=== PATIENT | female | born 2000 | race Two or more races ===

== ENCOUNTER 2025-03-29 16:07 | Inpatient (IN) | payer MEDICAID, OTHER ==
[~2025-03-29] VITALS: Ht 165.1 cm; Wt 51.2 kg
--- NOTE | 2025-03-29 16:24 | ED.PDOC ---
HPI Comments Past Medical history: Denies Any Past Surgical history: Denies Any Medications: Denies any Social History: Denies smoking, ETOH, and drug use. Allergies: NKDA HPI: Poor Historian. 25-year-old female presents to emergency department for three day history of left-sided chest pain radiating to her left shoulder. Pain is constant but wor se with movement of the upper body and bending. Denies any other associated symptoms. REVIEW OF SYSTEMS: CONSTITUTIONAL: Denies acute: fever, diaphoresis, chills, generalized weakness. HEAD: Denies acute: headache, photophobia Eyes: Denies acute: Double vision, vision loss, eye pain, eye discharge. EARS: Denies acute: tinnitus, hearing loss, ear discharge, ear pain, THROAT: Denies acute: sore throat, swelling, difficulty swallowing , pain with swallowing, change in voice. NECK: Denies acute: neck pain, neck swelling, stiff neck. HEART: Denies acute : palpitations, LUNGS: Denies acute: SOB, wheezing, cough, hemoptysis ABDOMEN: Denies acute: abdominal pain, Nausea, Vomiting, diarrhea, melena , hematemesis, hematochezia SKIN: Denies acute: rash, redness, lesions, itchiness. EXTREMITIES: Denies acute: calf pain, numbness, tingling, weakness, denies pain in extremity. Denies acute: Low back pain. Neuro: Denies acute: focal neurological deficit, motor or sensory focal neurological de ficit, tremors, seizure like activity, confusion, dizziness, change in mental status, loss of bowel or bladder function, cauda equina like symptoms. : Denies acute: dysuria, hematuria, flank pain, increase in urinary frequency. PSYCH: Denies acute: hallucination, suicidal ideation, homicidal ideation. FEMALE: Denies acute: abnormal vaginal bleeding, foul odor, unusual discharge. PHYSICAL EXAM: General: ----no----acute distress, awake and alert. Head: normocephalic, atraumatic. Neck: supple, trachea is midline, no swelling. Throat: Normal phonation. Eyes:, no erythema, no purulent discharge, no proptosis, no icterus. Heart: regular rate, regular rhythm, no significant murmur appreciated. Lungs: no apparent respiratory distress, Able to speak in full sentences. No wheezing, no rhonchi, no crackles. No stridors Clear to auscultation bilaterally. Abdomen: non tender to palpation, non distended, soft, no guarding, no rebound, + bowel sounds. Neuro: Awake, Alert, oriented to name, self, situation, follows commands GCS=15. Speech is normal. Skin: no petechia, no purpura, no cyanosis, non-pale, not jaundice. Lower extremities: --no - Pitting edema no deformity, no focal swelling, no calf TTP. Makes eye contact. moves all four extremities. Face: no apparent facial droop. Ambulating in the ED independently. ED COURSE: DISCLAIMER: This medical document was created using an electronic medical record system with voice recognition software and computerized dictation system. Although this document has been carefully reviewed, there might still be some phonetic and typographical errors. Occasional wrong-word or "sound-alike" substitutions may have occurred due to the inherent limitations of voice recognition software. These areas are purely typographical due to imperfections of the software programs and do not reflect any compromise in the patient's medical care. Please read the chart carefully and recognize, using context, where these substitutions have occurred. Chief Complaint: Chest Pain Time Seen by MD: 16:20 Reviewed Notes: Nurses Notes, Medications, Allergies Allergies: Coded Allergies: NO KNOWN ALLERGIES (Unverified , 03/29/25) Information Source: Patient Mode of Arrival: Ambulatory Past Medical History PAST MEDICAL HISTORY: Denies Surgical History: Denies all surgeries RADIOPHARMACIST History: No Pertinent RADIOPHARMACIST History Family History Family History: Reviewed,noncontributory to illness, Unknown Social History Smoker: Non-Smoker Alcohol: Denies ETOH Use Drugs: Denies Drug Use Lives In: Home EKG EKG : Pulse Rate (adult): 53 [place]: Normal Cardiac Rhythm: NSR Block: None Hypertrophy: None ST: Normal Was a procedure done? Was a procedure done?: Yes Sedation Sedation?: No Informed consent obtained: Yes Chest Tube Indication: Pneumothorax Procedure: Sterile preparation Anesthetic: Lidocaine Site: L 3rd intercostal space Drainage: Air Informed consent obtained: Yes Risks/benefits/alt described: Yes Notes URESIL thoracic vent 2% lidocaine with epi was used for local anesthesia a total of 4 cc. Eleven blade was used to make initial incision. Vent was connected to wall low intermittent suction. Postprocedure x-ray were obtained which showed imp rovement. Patient tolerated procedure well. Bleeding minimal. Complications none apparent. CP Differential Dx Differential Diagnosis: N/A Differential Diagnosis: Pneumothorax, Other (Ddx include but not limitied to gastritis, musculoskeletal pain, radiculopathy, atypical chest pain, dissection, aneurysm, ACS, unstable angina, hiatal hernia, GERD, anxiety, costochondritis, PE, pneumothroax, neoplasm, cardiac ischemia, drug abuse, anemia.) X-Ray, Labs, Meds, VS Vital Signs Date Time Temp Pulse Resp B/P (MAP) Pulse Ox O2 Delivery O2 Flow Rate FiO2 03/29/25 17:16 68 19 98 Room Air* 0 21 03/29/25 17:14 54 13 100/53 (69) 100 03/29/25 16:24 53 03/29/25 16:14 53 03/29/25 16:09 98.2 68 16 102/57 98 98.2 Lab Test 03/29/25 18:31 03/29/25 17:23 03/29/25 16:30 Range/Units Urine Color Light-yellow Yellow Urine Clarity Clear Clear Urine pH 6.0 5.0-9.0 Urine Specific [place] 1.006 1.001-1.035 Urine Protein Negative Negative Urine Ketones Trace Negative Urine Blood Negative Negative /uL Urine Nitrite Negative Negative Urine Bilirubin Negative Negative Urine Urobilinogen Normal Negative mg/dL Urine Leukocyte Esterase Negative Negative /uL Urine RBC None seen 0 - 4 /hpf Urine Microscopic WBC 2 0-5 /HPF Urine Squamous Epithelial Cells Few <5 /hpf Urine Bacteria Few H None Seen /hpf Urine Glucose Normal Normal mg/dL Urine Test Negative Negative Troponin I High Sensitivity < 3 L < 3 L </=34 ng/L White Blood Count 7.2 4.4-10.8 10^3/uL Red Blood Count 4.36 4.0-5.20 10^6/uL Hemoglobin 14.1 12.2-16.2 g/dL Hematocrit 40.5 36.0-46.0 % Mean Corpuscular Volume 92.7 80.0-100.0 fL Mean Corpuscular Hemoglobin 32.2 H 28.0-32.0 pg Mean Corpuscular Hemoglobin Concent 34.7 32.0-36.0 g/dL Red Cell Distribution Width 13.0 11.8-14.3 % Platelet Count 201 140-450 10^3/uL Mean Platelet Volume 8.2 6.9-10.8 fL Neutrophils (%) (Auto) 68.3 37.0-80.0 % Lymphocytes (%) (Auto) 23.9 10.0-50.0 % Monocytes (%) (Auto) 6.6 0.0-12.0 % Eosinophils (%) (Auto) 0.6 0.0-7.0 % Basophils (%) (Auto) 0.6 0.0-2.0 % Neutrophils # (Auto) 4.9 1.6-8.6 10 ^3/uL Lymphocytes # (Auto) 1.7 0.4-5.4 10 ^3/uL Monocytes # (Auto) 0.5 0-1.3 10 ^3/uL Eosinophils # (Auto) 0 0-0.8 10 ^3/uL Basophils # (Auto) 0 0-0.2 10 ^3/uL Nucleated Red Blood Cells 0.0 % D-Dimer, Quantitative < 0.19 0.0-0.49 mg/L FEU Sodium Level 142 136-145 mmol/L Potassium Level 3.6 3.5-5.1 mmol/L Chloride Level 104 98-107 mmol/L Carbon Dioxide Level 27 20-31 mmol/L Anion Gap 11 5-15 Blood Urea Nitrogen 8 L 9-23 mg/dL Creatinine 0.74 0.550-1.02 mg/dL Glomerular Filtration Rate Calc 117 >90 mL/min BUN/Creatinine Ratio 10.8 10.0-20.0 Serum Glucose 83 74-106 mg/dL Calcium Level 9.7 8.7-10.4 mg/dL Total Bilirubin 2.2 H 0.2-1.0 mg/dL Aspartate Amino Transferase (AST) 17 13-40 U/L Alanine Aminotransferase (ALT) 17 7-40 U/L Alkaline Phosphatase 60 46-116 U/L Total Protein 7.5 5.7-8.2 g/dL Albumin 5.2 H 3.2-4.8 g/dL [facility] [address] [facility] [address] Ph: [phone] DIAGNOSTIC IMAGING Diagnostic Imaging Report : [id number] Signed PATIENT: WESLY LOPEZ ACCT: [id number] UNIT: [id number] : 2000 LOC: ER ROOM / BED: / AGE / SEX: 25 / F ADM STATUS: REG ER SERVICE 1615 ORDERING PHYSICIAN: JANET RUSH DO PROCEDURE(s): CXRP - CHEST PORTABLE REASON: CP ORDER NUMBER(s): [id number], ACCESSION NUMBER(s): [id number] EXAM: XY CHEST PORTABLE HISTORY: CP COMPARISON: None TECHNIQUE: PA upright view of the chest was performed. FINDINGS: There is a left pneumothorax measuring 2.9 cm in the apex. No consolidative infiltrates or pulmonary edema. There is mild central peribronchial thickening. The heart is not enlarged. There is mild lower thoracic levoscoliosis. No fractures are identified about the bony thorax. IMPRESSION: 1. Left apical pneumothorax measures 2.9 cm. 2. Reactive airways disease. Critical findings Critical Result: Left pneumothorax Findings called to Dr. Rush at 03/29/2025 06:42 PM CDT, and acknowledged receipt and understanding of the findings. ATED BY: CLINT KIM MD DICTATED DATE/TIME: 03/29/251646 SIGNED BY: CLINT KIM MD SIGNED DATE/TIME: 03/29/251646 CC: [place] [id number] Ph: [phone] DIAGNOSTIC IMAGING Diagnostic Imaging Report : [id number] Signed PATIENT: WESLY LOPEZ ACCT: [id number] UNIT: [id number] : 2000 LOC: OVERFLOW ROOM / BED: 1016-ER / A AGE / SEX: 25 / F ADM STATUS: ADM IN SERVICE 23 ORDERING PHYSICIAN: JANET RUSH DO PROCEDURE(s): CXR1 - CHEST XRAY 1 VIEW REASON: cheat tube placement ORDER NUMBER(s): [id number], ACCESSION NUMBER(s): [id number] EXAM: XY CHEST XRAY 1 VIEW HISTORY: cheat tube placement TECHNIQUE: 1 view of the chest COMPARISON: XY CHEST PORTABLE on DOS: 03/29/25 FINDINGS/IMPRESSION: LUNGS: Left upper hemithoracic pleural catheter placement. No interval change. Trace residual likely apical pneumothorax. Overall no significant interval change MEDIASTINUM: Unremarkable BONES: No acute osseous abnormality OTHER: None ATED BY: MARCIAL ALONSO MD DICTATED DATE/TIME: 03/29/252115 SIGNED BY: MARCIAL ALONSO MD SIGNED DATE/TIME: 03/29/252115 CC: [place] [id number] Ph: [phone] DIAGNOSTIC IMAGING Diagnostic Imaging Report : [id number] Signed PATIENT: WESLY LOPEZ ACCT: [id number] UNIT: [id number] : 2000 LOC: OVERFLOW ROOM / BED: [address] [place] [address] AGE / SEX: 25 / F ADM STATUS: ADM IN SERVICE 10 ORDERING PHYSICIAN: JANET RUSH DO PROCEDURE(s): CXR2 - CHEST TWO VIEWS ROUTINE REASON: post chest tube. ORDER NUMBER(s): [id number], ACCESSION NUMBER(s): [id number] EXAM: XY CHEST TWO VIEWS ROUTINE CLINICAL HISTORY: post chest tube. TECHNIQUE: Frontal and lateral views of the chest WID: COMPARISON: XY CHEST PORTABLE on DOS: 03/29/25, XY CHEST XRAY 1 VIEW on DOS: 03/29/25, XY CHEST PORTABLE on DOS: 03/29/25 FINDINGS: Lines and tubes: There is an anterior approach left pleural drain projecting over the left upper lung. Chest: The heart size and pulmonary vasculature is within normal limits. Small left apical pneumothorax. No new pneumothorax or pleural effusion. The osseous structures are grossly intact. IMPRESSION: 1. Small left apical pneumothorax with a left upper chest tube in place. ATED BY: VEGA JC MD DICTATED DATE/TIME: 03/29/252309 SIGNED BY: VEGA JC MD SIGNED DATE/TIME: 08/29/25 2310 CC: Time of 1ST Reevaluation: 16:50 Reevaluation 1ST: Unchanged Patient Education/Counseling: Diagnosis, Treatment, Prognosis Family Education/Counseling: No Family Present Comments MDM: patient presented with the above HPI.--chest pain----workup was initiated. patient was found with the above mentioned diagnosis. the following medications were ordered: please refer to order lists of meds and tests obtained by myself Dr. Rush. Patient ED course and VS have been stabilized. Patient has been reassessed in the ED and remained in a stable condition. Pertinent incidental findings were discussed with the patient and/or family. Patient/family voices understanding and is agreeable with plan. Patient has been observed in the ED adequate length of time to insure improvement/stability. Escalation of care considered: Consideration of escalation to observation or admission Chest tube was placed successfully from 1st attempt. Connected to low intermittent suction. Post procedure chest x-ray shows improvement of the pneumothorax. Patient was ADMITTED to the medicine team for further evaluation and treatment of their presentation. All the reports of any imaging studies that were ordered by myself were reviewed by myself. SEPSIS Sepsis Screen Date sepsis recognized/suspect: Mar 29, 2025 Time Sepsis recognized/suspect: 1609 Recent Procedure: No On Antibiotic Therapy: No Respiratory Rate >20: No Heart Rate >90: No Temp<36 C (96.8 F) or >38.3 C: No SBP <90 or MAP <65 mmHG: No New Acute Mental Status Change: No Is the patient on CPAP, BIPAP,: No Physician Orders Electrocardigram (03/29/25 16:10) Chest Portable (03/29/25 16:15) Chest Portable (03/30/25 01:19) Chest Portable (03/30/25 07:19) Chest Portable (03/30/25 13:19) Regular Diet (03/30/25 Breakfast) Non Rebreather (03/29/25 19:39) Vital Signs Date Time Temp Pulse Resp B/P (MAP) Pulse Ox O2 Delivery O2 Flow Rate FiO2 03/29/25 17:16 68 19 98 Room Air* 0 21 03/29/25 17:14 54 13 100/53 (69) 100 03/29/25 16:24 53 03/29/25 16:14 53 03/29/25 16:09 98.2 68 16 102/57 98 98.2 Laboratory Tests Test 03/29/25 16:30 White Blood Count 7.2 10^3/uL (4.4-10.8) Departure 1 Departure Time of Disposition: 16:44 Impression: Primary Impression: Spontaneous pneumothorax Additional Impression: Status post chest tube placement Disposition: ADMITTED INPATIENT Admit to: Tele Condition: Guarded Discharged With: Self Critical Care Note Critical Care Time?: Yes (45 min-critical care time only) Heart Score Heart Score: Heart Score Response (Comments) Value History Slightly Suspicious 0 EKG Normal 0 Age <45 0 Risk Factors No known risk factors 0 Troponin Normal limit 0 Total 0 I personally scribed for JANET RUSH DO ([email or web address]) on 03/29/25 at 16:24. Electronically submitted by Osvaldo Diaz ([email or web address]). I personally scribed for JANET RUSH DO ([email or web address]) on 03/29/25 at 16:53. Electronically submitted by Osvaldo Diaz ([email or web address]). JANET RUSH DO Mar 29, 2025 16:24
--- NOTE | 2025-03-29 16:50 | DVH ---
EXAM: XY CHEST PORTABLE HISTORY: CP COMPARISON: None TECHNIQUE: PA upright view of the chest was performed. FINDINGS: There is a left pneumothorax measuring 2.9 cm in the apex. No consolidative infiltrates or pulmonary edema. There is mild central peribronchial thickening. The heart is not enlarged. There is mild lower thoracic levoscoliosis. No fractures are identified about the bony thorax. IMPRESSION: 1. Left apical pneumothorax measures 2.9 cm. 2. Reactive airways disease. Critical findings Critical Result: Left pneumothorax Findings called to Dr. Calderon at 03/29/2025 06:42 PM CDT, and acknowledged receipt and understanding o f the findings.
[2025-03-29 16:51] LABS: Hematocrit 40.5 % (36.0-46.0); Hemoglobin 14.1 g/dL (12.2-16.2); Mean Corpuscular Hemoglobin 32.2 pg (28.0-32.0); Mean Corpuscular Volume 92.7 fL (80.0-100.0); Nucleated Red Blood Cells % 0.0 %
[2025-03-29 17:13] LABS: Alanine Aminotransferase 17 U/L (7-40); Alkaline Phosphatase 60 U/L (46-116); Anion Gap 11 (5-15); BUN/Creatinine Ratio 10.8 (10.0-20.0); Calcium 9.7 mg/dL (8.7-10.4); Carbon Dioxide 27 mmol/L (20-31); Chloride 104 mmol/L (98-107); Glucose 83 mg/dL (74-106); Potassium 3.6 mmol/L (3.5-5.1); Sodium 142 mmol/L (136-145); Total Protein 7.5 g/dL (5.7-8.2)
[2025-03-29 17:16] VITALS: PULSE 68; RESP 19; O2SAT 98
[2025-03-29 17:17] LABS: Albumin 5.2 g/dL (3.2-4.8); Bilirubin, Total 2.2 mg/dL (0.2-1.0); Blood Urea Nitrogen 8 mg/dL (9-23)
--- NOTE | 2025-03-29 19:19 | DVHHP2 ---
Admitting Diagnosis: Chest pain History of Present Illness 25-year-old female presents to emergency department for three day history of left-sided chest pain radiating to her left shoulder. Pain is constant but worse with movement of the upper body and bending. Denies any other associated symptoms. REVIEW OF SYSTEMS: CONSTITUTIONAL: Denies acute: fever, diaphoresis, chills, generalized weakness. HEAD: Denies acute: headache, photophobia Eyes: Denies acute: Double vision, vision loss, eye pain, eye discharge. EARS: Denies acute: tinnitus, hearing loss, ear discharge, ear pain, THROAT: Denies acute: sore throat, swelling, difficulty swallowing , pain with swallowing, change in voice. NECK: Denies acute: neck pain, neck swelling, stiff neck. HEART: Denies acute : palpitations, LUNGS: Denies acute: SOB, wheezing, cough, hemoptysis ABDOMEN: Denies acute: abdominal pain, Nausea, Vomiting, diarrhea, melena , hematemesis, hematochezia SKIN: Denies acute: rash, redness, lesions, itchiness. EXTREMITIES: Denies acute: calf pain, numbness, tingling, weakness, denies pain in extremity. Denies acute: Low back pain. Neuro: Denies acute: focal neurological deficit, motor or sensory focal neurological deficit, tremors, seizure like activity, confusion, dizziness, change in mental status, loss of bowel or bladder function, cauda equina like symptoms. : Denies acute: dysuria, hematuria, flank pain, increase in urinary frequency. PSYCH: Denies acute: hallucination, suicidal ideation, homicidal ideation. FEMALE: Denies acute: abnormal vaginal bleeding, foul odor, unusual discharge. PAST MEDICAL HISTORY: Denies Surgical History: Denies all surgeries SEAM RUBBING MACHINE OPERATOR History: No Pertinent SEAM RUBBING MACHINE OPERATOR History Family History Family History: Reviewed,noncontributory to illness, Unknown Social History Smoker: Non-Smoker Alcohol: Denies ETOH Use Drugs: Denies Drug Use Lives In: Home Allergies: Coded Allergies: NO KNOWN ALLERGIES (Unverified , 03/29/25) Vital Signs Vital Signs Date Time Temp Pulse Resp B/P (MAP) Pulse Ox O2 Delivery O2 Flow Rate FiO2 03/29/25 17:16 68 19 98 Room Air* 0 21 03/29/25 17:14 100/53 (69) 03/29/25 16:09 98.2 98.2 Physical Exam Generally-35 years old woman, well nourished regular. Mild distress HEENT-atraumatic N/C Heart-regular rate and rhythm Lungs clear to auscultate Abdomen soft nontender nondistended Musculoskeletal-no edema cyanosis Neuro-AO x3, no focal deficits SEPSIS Sepsis Screen Date sepsis recognized/suspect: Mar 29, 2025 Time Sepsis recognized/suspect: 1609 Recent Procedure: No On Antibiotic Therapy: No Respiratory Rate >20: No Heart Rate >90: No Temp<36 C (96.8 F) or >38.3 C: No SBP <90 or MAP <65 mmHG: No New Acute Mental Status Change: No Is the patient on CPAP, BIPAP,: No Physician Orders Electrocardigram (03/29/25 16:10) Troponin-I Hs (03/29/25 19:10) Chest Portable (03/29/25 16:15) Urinalysis (03/29/25 18:31) Vital Signs Date Time Temp Pulse Resp B/P (MAP) Pulse Ox O2 Delivery O2 Flow Rate FiO2 03/29/25 17:16 68 19 98 Room Air* 0 21 03/29/25 17:14 54 13 100/53 (69) 100 03/29/25 16:24 53 03/29/25 16:14 53 03/29/25 16:09 98.2 68 16 102/57 98 98.2 Laboratory Tests Test 03/29/25 16:30 White Blood Count 7.2 10^3/uL (4.4-10.8) Results Labs Test 03/29/25 18:31 03/29/25 17:23 03/29/25 16:30 Range/Units Troponin I High Sensitivity < 3 L </=34 ng/L White Blood Count 7.2 4.4-10.8 10^3/uL Red Blood Count 4.36 4.0-5.20 10^6/uL Hemoglobin 14.1 12.2-16.2 g/dL Hematocrit 40.5 36.0-46.0 % Mean Corpuscular Volume 92.7 80.0-100.0 fL Mean Corpuscular Hemoglobin 32.2 H 28.0-32.0 pg Mean Corpuscular Hemoglobin Concent 34.7 32.0-36.0 g/dL Red Cell Distribution Width 13.0 11.8-14.3 % Platelet Count 201 140-450 10^3/uL Mean Platelet Volume 8.2 6.9-10.8 fL Neutrophils (%) (Auto) 68.3 37.0-80.0 % Lymphocytes (%) (Auto) 23.9 10.0-50.0 % Monocytes (%) (Auto) 6.6 0.0-12.0 % Eosinophils (%) (Auto) 0.6 0.0-7.0 % Basophils (%) (Auto) 0.6 0.0-2.0 % Neutrophils # (Auto) 4.9 1.6-8.6 10 ^3/uL Lymphocytes # (Auto) 1.7 0.4-5.4 10 ^3/uL Monocytes # (Auto) 0.5 0-1.3 10 ^3/uL Eosinophils # (Auto) 0 0-0.8 10 ^3/uL Basophils # (Auto) 0 0-0.2 10 ^3/uL Nucleated Red Blood Cells 0.0 % D-Dimer, Quantitative < 0.19 0.0-0.49 mg/L FEU Sodium Level 142 136-145 mmol/L Potassium Level 3.6 3.5-5.1 mmol/L Chloride Level 104 98-107 mmol/L Carbon Dioxide Level 27 20-31 mmol/L Anion Gap 11 5-15 Blood Urea Nitrogen 8 L 9-23 mg/dL Creatinine 0.74 0.550-1.02 mg/dL Glomerular Filtration Rate Calc 117 >90 mL/min BUN/Creatinine Ratio 10.8 10.0-20.0 Serum Glucose 83 74-106 mg/dL Calcium Level 9.7 8.7-10.4 mg/dL Total Bilirubin 2.2 H 0.2-1.0 mg/dL Aspartate Amino Transferase (AST) 17 13-40 U/L Alanine Aminotransferase (ALT) 17 7-40 U/L Alkaline Phosphatase 60 46-116 U/L Total Protein 7.5 5.7-8.2 g/dL Albumin 5.2 H 3.2-4.8 g/dL Primary Diagnosis Left apical pneumothorax spontaneous Plan Pt is prepped in ED for chest tube For patient's father patient insert family smokes regularly at home. Patient vapes and patient's grandmother head lung disease Patient also has frequent upper respiratory infection on steroids and antibiotics last one about a month ago Pulmonology consult Non-rebreather 15 L to expand the lungs Regular diet Full code Lovenox for DVT prophylaxis DVT prophylaxis needed Plan discussed with: Patient Problems List: (1) Chest pain Status: Acute (2) Spontaneous pneumothorax Status: Acute Date of Service: Mar 29, 2025 Billing Provider: TWILA WEAVER MD Common Visit Codes: [id number] INP/OBS CARE (MOD) TWILA WEAVER MD Mar 29, 2025 19:19
[2025-03-29] MEDS: SODIUM CHLORIDE 0.9% 1,000 ML IV ONE (19:30)
[2025-03-29 19:50] VITALS: PULSE 57; RESP 22; O2SAT 100
[2025-03-29 19:53] LABS: Urine Protein, UAD Negative (Negative)
--- NOTE | 2025-03-29 21:19 | DVH ---
EXAM: XY CHEST XRAY 1 VIEW HISTORY: cheat tube placement TECHNIQUE: 1 view of the chest COMPARISON: XY CHEST PORTABLE on DOS: 03/29/25 FINDINGS/IMPRESSION: LUNGS: Left upper hemithoracic pleural catheter placement. No interval change. Trace residual likely apical pneumothorax. Overall no significant interval change MEDIASTINUM: Unremarkable BONES: No acute osseous abnormality OTHER: None
[2025-03-29] MEDS: HYDROmorphone HCL 2 MG/ML VL/or syr IV PRN (21:27)
[2025-03-29] MEDS: LIDOCAINE W/ EPINEPHRINE 2% INJ 20ML VIAL ONE (21:46)
[2025-03-29] MEDS: ceFAZolin 1GM/50ML 50 ML IV SCH (21:57)
[2025-03-29] MEDS: SODIUM CHLOR 0.9% PF (SALINE LOCK) 10ML VIAL/SYR IV SCH (22:00)
[2025-03-29] MEDS: ONDANSETRON HCL 4 MG/2 ML VIAL IV PRN (22:30)
--- NOTE | 2025-03-29 23:12 | DVH ---
EXAM: XY CHEST TWO VIEWS ROUTINE CLINICAL HISTORY: post chest tube. TECHNIQUE: Frontal and lateral views of the chest WID: COMPARISON: XY CHEST PORTABLE on DOS: 03/29/25, XY CHEST XRAY 1 VIEW on DOS: 03/29/25, XY CHEST PORTABL E on DOS: 03/29/25 FINDINGS: Lines and tubes: There is an anterior approach left pleural drain projecting over the left upper lung . Chest: The heart size and pulmonary vasculature is within normal limits. Small left apical pneumothorax. No new pneumothorax or pleural effusion. The osseous structures are grossly intact. IMPRESSION: 1. Small left apical pneumothorax with a left upper chest tube in place.
[2025-03-30 04:57] LABS: Alanine Aminotransferase 14 U/L (7-40); Alkaline Phosphatase 60 U/L (46-116); Anion Gap 12 (5-15); BUN/Creatinine Ratio 9.5 (10.0-20.0); Calcium 9.5 mg/dL (8.7-10.4); Carbon Dioxide 23 mmol/L (20-31); Chloride 106 mmol/L (98-107); Glucose 84 mg/dL (74-106); Potassium 4.5 mmol/L (3.5-5.1); Sodium 141 mmol/L (136-145); Total Protein 7.5 g/dL (5.7-8.2)
[2025-03-30 04:58] LABS: Hematocrit 41.6 % (36.0-46.0); Hemoglobin 14.2 g/dL (12.2-16.2); Mean Corpuscular Hemoglobin 32.2 pg (28.0-32.0); Mean Corpuscular Volume 94.1 fL (80.0-100.0); Nucleated Red Blood Cells % 0.1 %
[2025-03-30 05:01] LABS: Albumin 4.9 g/dL (3.2-4.8); Bilirubin, Total 2.3 mg/dL (0.2-1.0); Blood Urea Nitrogen 7 mg/dL (9-23)
--- NOTE | 2025-03-30 08:04 | DVH ---
XY CHEST PORTABLE, HISTORY: left spontaneous pneumothorax COMPARISON: XY CHEST TWO VIEWS ROUTINE on DOS: 03/29/25, XY CHEST PORTABLE on DOS: 03/29/25, XY CHEST X RAY 1 VIEW on DOS: 03/29/25 XY CHEST TWO VIEWS ROUTINE on DOS: 03/29/25, XY CHEST PORTABLE on DOS: 03/29/25, XY CHEST XRAY 1 VIEW o n DOS: 03/29/25 TECHNICAL DATA: 1 view of the chest was obtained. FINDINGS: Lines and tubes: Stable left apical chest tube. Cardiomediastinal silhouette: normal Pulmonary vasculature: normal Lung expansion: normal Lung airspace: normal Lung interstitium: normal Pleura: normal Pneumothorax: no Bones: Unremarkable Other: no IMPRESSION: No pneumothorax seen.
[2025-03-30] MEDS: HYDROcodone-ACET 5/325MG TAB PO PRN (10:57)
[2025-03-30] MEDS: ENOXAPARIN SOD 40 MG/0.4 ML SYRINGE SC SCH (11:00)
[2025-03-30 11:02] VITALS: RESP 18
--- NOTE | 2025-03-30 13:53 | DVH ---
XY CHEST PORTABLE, HISTORY: left spontaneous pneumothorax COMPARISON: XY CHEST PORTABLE on DOS: 03/30/25, XY CHEST TWO VIEWS ROUTINE on DOS: 03/29/25, XY CHEST P ORTABLE on DOS: 03/29/25 XY CHEST PORTABLE on DOS: 03/30/25, XY CHEST TWO VIEWS ROUTINE on DOS: 03/29/25, XY CHEST PORTABLE on D OS: 03/29/25 TECHNICAL DATA: 1 view of the chest was obtained. FINDINGS: Lines and tubes: Stable left apical chest tube. Cardiomediastinal silhouette: normal Pulmonary vasculature: normal Lung expansion: normal Lung airspace: normal Lung interstitium: normal Pleura: normal Pneumothorax: no Bones: Unremarkable Other: no IMPRESSION: No pneumothorax seen.
[2025-03-30 14:25] VITALS: BP 102/49; PULSE 52; RESP 18; TEMP 98.3; O2SAT 100
--- NOTE | 2025-03-30 17:43 | DVHPN2 ---
Subjective Patient is seen at bedside today,. Doing well, needs pain control. Reviewed: Care Plan Changes from previous H/P or p: No Changes General: Per HPI Objective Vitals Vital Signs Date Time Temp Pulse Resp B/P (MAP) Pulse Ox O2 Delivery O2 Flow Rate FiO2 03/30/25 14:25 98.3 52 18 102/49 (66) 100 98.3 03/30/25 11:02 Nasal Cannula* 2 28 Exam GEN: Healthy appearing, well-developed, NAD. HEENT: NC/AT; MMM. CV: RRR, no m/r/g. LUNGS: CTAB, no w/r/c. Chest tube anterior chest wall, lateral clavicular line on left side, good breath sounds in all adames. Chest tube was connected to the suction. ABD: Soft, NT/ND, NBS, no masses or organomegaly. EXT: skin Warm, well perfused. no rashes. No clubbing, cyanosis, or edema. NEURO: Ambulating with no limitations. No focal deficits. Medications Current Medications Medications Dose Ordered Sig/Antoni Route Start Time Stop Time Status Last Admin Dose Admin Sodium Chloride 10 ml Q8HR IV 03/29/25 22:00 03/30/25 14:00 10 ML Docusate Sodium 100 mg BIDPRN PRN PO 03/29/25 19:45 Acetaminophen 650 mg Q6HP PRN PO 03/29/25 19:45 Hydromorphone HCl 0.5 mg Q4HP PRN IV 03/29/25 19:45 Hold 03/30/25 03:25 0.5 MG Ondansetron HCl 4 mg Q4HP PRN IV 03/29/25 19:45 03/30/25 03:20 4 MG Enoxaparin Sodium 40 mg DAILY SC 03/30/25 10:00 03/30/25 11:00 40 MG Cefazolin Sodium 50 ml @ 100 mls/hr Q8H IV 03/29/25 19:45 03/30/25 12:03 100 MLS/HR Morphine Sulfate 1 mg Q4HP PRN IV 03/30/25 16:15 Acetaminophen/ Hydrocodone Bitart 1 tab Q4HP PRN PO 03/30/25 16:15 Laboratory Results Laboratory Tests 03/30/25 03:39 Chemistry Test 03/30/25 03:39 Albumin 4.9 g/dL (3.2-4.8) H Calcium Level 9.5 mg/dL (8.7-10.4) Total Protein 7.5 g/dL (5.7-8.2) LFT Test 03/30/25 03:39 Alanine Aminotransferase (ALT) 14 U/L (7-40) Alkaline Phosphatase 60 U/L (46-116) Aspartate Amino Transferase (AST) 15 U/L (13-40) Total Bilirubin 2.3 mg/dL (0.2-1.0) H Urinalysis Test 03/29/25 18:31 Urine Color Light-yellow (Yellow) Urine Clarity Clear (Clear) Urine pH 6.0 (5.0-9.0) Urine Specific [place] 1.006 (1.001-1.035) Urine Protein Negative (Negative) Urine Ketones Trace (Negative) Urine Blood Negative /uL (Negative) Urine Nitrite Negative (Negative) Urine Bilirubin Negative (Negative) Urine Urobilinogen Normal mg/dL (Negative) Urine Leukocyte Esterase Negative /uL (Negative) Urine RBC None seen /hpf (0 - 4) Urine Microscopic WBC 2 /HPF (0-5) Urine Squamous Epithelial Cells Few /hpf (<5) Urine Bacteria Few /hpf (None Seen) H Urine Glucose Normal mg/dL (Normal) Urine Test Negative (Negative) Labs and/or images reviewed: Labs reviewed by me, Image(s) reviewed by me Assessment/Plan Assessment/Plan 03/30: Patient is seen at bedside, doing well, anorexic BMI 16 ,. Patient was not seen by [facility] today as order was entered incorrectly. We will fix order for Dr. Regan. Otherwise continue chest tube. Pain control. Left pneumothorax Severe protein calorie malnutrition Anorexia Neutrophilia Hyperbilirubinemia Plan: PULM consult Pain control PRN and analgesia Antiemetic prn Diet resume Maintenance IV fluids Ancef Lovenox Med surge Full code Plan discussed with: Patient My Orders Orders - OSEAS ALEJO MD Procedure Category Date Status Time *Consult CONS 03/30/25 Transmitted / 14:43 Morphine Sulfate PHA 03/30/25 In Process Injection 16:15 Hydrocodone-Acet PHA 03/30/25 In Process 10/325mg Tab ([place] 16:15 Date of Service: Mar 30, 2025 Billing Provider: OSEAS ALEJO MD Common Visit Codes: [id number] INP/OBS CARE(HIGH) OSEAS ALEJO MD Mar 30, 2025 17:43
--- NOTE | 2025-03-30 18:30 | DVH ---
ULTRASOUND ABDOMEN, LIMITED RIGHT UPPER QUADRANT: REASON FOR EXAM: Hyperbilirubinemia, right upper quadrant TECHNIQUE: Real-time sector scans in the transverse and longitudinal planes were obtained through th e right upper quadrant of the abdomen. FINDINGS: The liver is of normal size and contour. There is hepatopetal flow in the portal vein. Th ere is no intrahepatic nor extrahepatic biliary ductal dilatation. The common bile duct measures 3 m m. No gallstones or sludge are identified. There is no gallbladder wall thickening nor pericholecys tic fluid. There is no sonographic Kim's sign. The visualized portion of the pancreas is unremarkable. The right kidney measures 9.1 cm. No hydronephrosis or nephrolithiasis is identified. There is no e vidence of right renal mass or cyst. The visualized portions of the abdominal aorta demonstrate no evidence of aneurysmal dilatation. The visualized inferior vena cava is unremarkable. There is no free fluid identified in the right upper quadrant. IMPRESSION: Unremarkable right upper quadrant abdominal ultrasound.
[2025-03-30] MEDS: HYDROcodone-ACET 10/325MG TAB PO PRN (18:33)
[2025-03-30 21:00] VITALS: BP 107/65; PULSE 45; RESP 22; TEMP 98.2; O2SAT 100
--- NOTE | 2025-03-30 22:15 | DVHINCON2 ---
Date of service: Mar 30, 2025 Referring Physician Osvaldo Munguia MD Reason for Consultation Left pneumothorax History of Present Illness A 25-year-old woman with no significant past medical history who presented to the emergency department on 03/29/25 with c/o 3-day history of left-sided chest pain radiating to her left shoulder. Pain reported as constant but worse with movement of the upper body and bending. Denied any other associated symptoms. Patient was admitted for further care. Pulmonary consultation is requested for evaluation and management of left pneumothorax. Review of Systems: 14-point review of systems negative unless otherwise noted above. Past Medical History: None Past Surgical History: None Medications: Reviewed. Allergies: No known drug allergies. Family History: Bipolar disorder Cholecystectomy Thyroid disease/Hyperthyroidism Social History: Nonsmoker. No alcohol or illicit drug use. Family History: FH: bipolar disorder G8 FATHER FH: cholecystectomy G8 MOTHER FH: hyperthyroidism G8 MOTHER Thyroid disease Allergies: Coded Allergies: NO KNOWN ALLERGIES (Unverified , 03/29/25) Current Medications Current Medications Medications (Trade) Dose Ordered Sig/Antoni Route PRN Reason Start Time Stop Time Status Last Admin Enoxaparin Sodium (Lovenox) 40 mg DAILY SC 03/30/25 10:00 03/30/25 11:00 Morphine Sulfate 1 mg Q4HP PRN IV SEVERE PAIN (7-10 PAIN SCALE) 03/30/25 16:15 Acetaminophen/ Hydrocodone Bitart ([place] 10/325MG Tab) 1 tab Q4HP PRN PO MODERATE PAIN (4-6 PAIN SCALE) 03/30/25 16:15 03/30/25 18:33 Vital Signs Vital Signs Date Time Temp Pulse Resp B/P (MAP) Pulse Ox O2 Delivery O2 Flow Rate FiO2 03/30/25 21:00 98.2 45 22 107/65 (79) 100 98.2 03/30/25 11:02 Nasal Cannula* 2 28 Physical Exam Gen.: Patient lying in bed in no apparent distress. On supplemental oxygen. Head: Normocephalic, atraumatic. Eyes: EOMI/PERRLA. Ears: Normal hearing. Normal anatomy. Neck/trachea: Trachea midline, supple. Nose: Normal external anatomy. Mouth: Moist mucous membranes. Chest: Decreased air entry bilaterally. No wheezing or rhonchi. Cardiovascular: Positive S1, positive S2. Regular rate and rhythm. Abdomen: Positive bowel sounds in all 4 quadrants. Soft, non-tender, non- distended. : Deferred. Rectal: Deferred. Skin: Warm, dry. Intact. Extremities: 2+ radial pulses bilaterally. No lower extremity edema. Neuro: Awake, alert, oriented x3. No gross motor or sensory deficits. Cranial nerves II through XII intact. Gait not assessed. Labs/Diagnostic Data Labs Test 03/30/25 03:39 03/29/25 18:31 03/29/25 17:23 03/29/25 16:30 Range/Units White Blood Count 10.0 # 4.4-10.8 10^3/uL Red Blood Count 4.42 4.0-5.20 10^6/uL Hemoglobin 14.2 12.2-16.2 g/dL Hematocrit 41.6 36.0-46.0 % Mean Corpuscular Volume 94.1 80.0-100.0 fL Mean Corpuscular Hemoglobin 32.2 H 28.0-32.0 pg Mean Corpuscular Hemoglobin Concent 34.2 32.0-36.0 g/dL Red Cell Distribution Width 13.0 11.8-14.3 % Platelet Count 177 140-450 10^3/uL Mean Platelet Volume 8.6 6.9-10.8 fL Neutrophils (%) (Auto) 87.9 H 37.0-80.0 % Lymphocytes (%) (Auto) 9.1 L 10.0-50.0 % Monocytes (%) (Auto) 2.8 0.0-12.0 % Eosinophils (%) (Auto) 0.0 0.0-7.0 % Basophils (%) (Auto) 0.2 0.0-2.0 % Neutrophils # (Auto) 8.8 H 1.6-8.6 10 ^3/uL Lymphocytes # (Auto) 0.9 0.4-5.4 10 ^3/uL Monocytes # (Auto) 0.3 0-1.3 10 ^3/uL Eosinophils # (Auto) 0 0-0.8 10 ^3/uL Basophils # (Auto) 0 0-0.2 10 ^3/uL Nucleated Red Blood Cells 0.1 % Sodium Level 141 136-145 mmol/L Potassium Level 4.5 3.5-5.1 mmol/L Chloride Level 106 98-107 mmol/L Carbon Dioxide Level 23 20-31 mmol/L Anion Gap 12 5-15 Blood Urea Nitrogen 7 L 9-23 mg/dL Creatinine 0.74 0.550-1.02 mg/dL Glomerular Filtration Rate Calc 117 >90 mL/min BUN/Creatinine Ratio 9.5 L 10.0-20.0 Serum Glucose 84 74-106 mg/dL Calcium Level 9.5 8.7-10.4 mg/dL Total Bilirubin 2.3 H 0.2-1.0 mg/dL Aspartate Amino Transferase (AST) 15 13-40 U/L Alanine Aminotransferase (ALT) 14 7-40 U/L Alkaline Phosphatase 60 46-116 U/L Total Protein 7.5 5.7-8.2 g/dL Albumin 4.9 H 3.2-4.8 g/dL Urine Color Light-yellow Yellow Urine Clarity Clear Clear Urine pH 6.0 5.0-9.0 Urine Specific [place] 1.006 1.001-1.035 Urine Protein Negative Negative Urine Ketones Trace Negative Urine Blood Negative Negative /uL Urine Nitrite Negative Negative Urine Bilirubin Negative Negative Urine Urobilinogen Normal Negative mg/dL Urine Leukocyte Esterase Negative Negative /uL Urine RBC None seen 0 - 4 /hpf Urine Microscopic WBC 2 0-5 /HPF Urine Squamous Epithelial Cells Few <5 /hpf Urine Bacteria Few H None Seen /hpf Urine Glucose Normal Normal mg/dL Urine Test Negative Negative Troponin I High Sensitivity < 3 L </=34 ng/L D-Dimer, Quantitative < 0.19 0.0-0.49 mg/L FEU Assessment Impression: Acute hypoxic respiratory failure Dependence on supplemental oxygen Vaping use Marijuana use Plan: CXR reviewed. No acute opacities. Left chest tube in place. No pneumothorax. Supplemental oxygen Titrate to keep O2 sats above 92%. Continue bronchodilators. Continue antibiotics Incentive spirometry Pain control Monitor renal function. Monitor electrolytes. Supplement as necessary. Monitor ins and outs. DVT prophylaxis. Prognosis: Poor given patient's multiple co-morbidities. Rest of plan per hospitalist and other consultants. Thank you, Dr. Mcmullen, for allowing me to participate in this patient's care. Further recommendations will depend on the patient's clinical course. Please do not hesitate to contact me if you have any questions or concerns. This medical document was created using an electronic medical record system with [employer] system. Although these documentations are being carefully reviewed, there may still be some phonetic and typographical changes. The errors are purely typographical, due to imperfection on the software program, and do not reflect any compromise in the patient's medical care. Plan discussed with: Patient, Other (ADE Mac /Dr. Mcmullen) ENEDINA BELL MD Mar 30, 2025 22:15
[2025-03-31] VITALS (8 sets, daily range): BP systolic 97–117; BP diastolic 46–78; PULSE 45–67; RESP 16–22; TEMP 97.8–98.3; O2SAT 2–100
[2025-03-31 06:06] LABS: Hematocrit 38.8 % (36.0-46.0); Hemoglobin 13.4 g/dL (12.2-16.2); Mean Corpuscular Hemoglobin 32.2 pg (28.0-32.0); Mean Corpuscular Volume 93.1 fL (80.0-100.0); Nucleated Red Blood Cells % 0.1 %
[2025-03-31 06:18] LABS: Alanine Aminotransferase 10 U/L (7-40); Albumin 4.3 g/dL (3.2-4.8); Alkaline Phosphatase 52 U/L (46-116); Anion Gap 9 (5-15); BUN/Creatinine Ratio 10.5 (10.0-20.0); Calcium 9.0 mg/dL (8.7-10.4); Carbon Dioxide 27 mmol/L (20-31); Chloride 104 mmol/L (98-107); Glucose 80 mg/dL (74-106); Potassium 3.9 mmol/L (3.5-5.1); Sodium 140 mmol/L (136-145); Total Protein 6.6 g/dL (5.7-8.2)
[2025-03-31 06:39] LABS: Bilirubin, Total 2.4 mg/dL (0.2-1.0); Blood Urea Nitrogen 8 mg/dL (9-23)
--- NOTE | 2025-03-31 19:37 | DVHPN2 ---
Subjective Patient is seen at bedside today,. Doing well, needs pain control. Reviewed: Care Plan Changes from previous H/P or p: No Changes General: Per HPI Objective Vitals Vital Signs Date Time Temp Pulse Resp B/P (MAP) Pulse Ox O2 Delivery O2 Flow Rate FiO2 03/31/25 17:00 98.3 52 18 97/52 (67) 100 98.3 03/31/25 08:00 Nasal Cannula* 2 28 Intake/Output Intake and Output 03/31/25 07:00 Intake Total 870 ml Balance 870 ml Intake Oral 720 ml IV Total 150 ml # Voids 1 Exam GEN: Healthy appearing, well-developed, NAD. HEENT: NC/AT; MMM. CV: RRR, no m/r/g. LUNGS: CTAB, no w/r/c. Chest tube anterior chest wall, lateral clavicular line on left side, good breath sounds in all adames. Chest tube was connected to the suction. ABD: Soft, NT/ND, NBS, no masses or organomegaly. EXT: skin Warm, well perfused. no rashes. No clubbing, cyanosis, or edema. NEURO: Ambulating with no limitations. No focal deficits. Medications Current Medications Medications Dose Ordered Sig/Antoni Route Start Time Stop Time Status Last Admin Dose Admin Sodium Chloride 10 ml Q8HR IV 03/29/25 22:00 03/31/25 06:51 10 ML Docusate Sodium 100 mg BIDPRN PRN PO 03/29/25 19:45 Acetaminophen 650 mg Q6HP PRN PO 03/29/25 19:45 Hydromorphone HCl 0.5 mg Q4HP PRN IV 03/29/25 19:45 Hold 03/30/25 03:25 0.5 MG Ondansetron HCl 4 mg Q4HP PRN IV 03/29/25 19:45 03/30/25 18:33 4 MG Enoxaparin Sodium 40 mg DAILY SC 03/30/25 10:00 03/31/25 10:30 40 MG Cefazolin Sodium 50 ml @ 100 mls/hr Q8H IV 03/29/25 19:45 03/31/25 10:31 100 MLS/HR Morphine Sulfate 1 mg Q4HP PRN IV 03/30/25 16:15 Acetaminophen/ Hydrocodone Bitart 1 tab Q4HP PRN PO 03/30/25 16:15 03/31/25 16:08 1 TAB Laboratory Results Laboratory Tests 03/31/25 05:06 Chemistry Test 03/31/25 05:06 Albumin 4.3 g/dL (3.2-4.8) Calcium Level 9.0 mg/dL (8.7-10.4) Total Protein 6.6 g/dL (5.7-8.2) LFT Test 03/31/25 05:06 Alanine Aminotransferase (ALT) 10 U/L (7-40) Alkaline Phosphatase 52 U/L (46-116) Aspartate Amino Transferase (AST) 12 U/L (13-40) L Total Bilirubin 2.4 mg/dL (0.2-1.0) H Urinalysis Test 03/29/25 18:31 Urine Color Light-yellow (Yellow) Urine Clarity Clear (Clear) Urine pH 6.0 (5.0-9.0) Urine Specific [place] 1.006 (1.001-1.035) Urine Protein Negative (Negative) Urine Ketones Trace (Negative) Urine Blood Negative /uL (Negative) Urine Nitrite Negative (Negative) Urine Bilirubin Negative (Negative) Urine Urobilinogen Normal mg/dL (Negative) Urine Leukocyte Esterase Negative /uL (Negative) Urine RBC None seen /hpf (0 - 4) Urine Microscopic WBC 2 /HPF (0-5) Urine Squamous Epithelial Cells Few /hpf (<5) Urine Bacteria Few /hpf (None Seen) H Urine Glucose Normal mg/dL (Normal) Urine Test Negative (Negative) Labs and/or images reviewed: Labs reviewed by me, Image(s) reviewed by me Assessment/Plan Assessment/Plan 03/30: Patient is seen at bedside, doing well, anorexic BMI 16 ,. Patient was not seen by [place] today as order was entered incorrectly. We will fix order for Dr. Regan. Otherwise continue chest tube. Pain control. 03/31: Patient is seen by Dr. Regan today, patient will be tried on clamp trial we will repeat chest x-ray and turned back of suctioned on. We will repeat x- ray tomorrow a.m. Dr. Regan we will continue following. Diagnosis: Left pneumothorax Severe protein calorie malnutrition Anorexia Neutrophilia Hyperbilirubinemia Plan: PULM consult Pain control PRN and analgesia Antiemetic prn Diet resume Maintenance IV fluids Ancef Lovenox Med surge Full code Plan discussed with: Patient My Orders Orders - OSEAS ALEJO MD Procedure Category Date Status Time Stat Ekg With Cp LOYD 03/31/25 In Process 11:47 Voting Machine Mechanic ORDERS 03/31/25 Transmitted 12:13 Transfer Service ORDERS 03/31/25 Transmitted 16:57 Chest Xray 1 View XY 03/31/25 Logged 17:36 Date of Service: Mar 31, 2025 Billing Provider: OSEAS ALEJO MD Common Visit Codes: [id number] INP/OBS CARE(HIGH) OSEAS ALEJO MD Mar 31, 2025 19:37
--- NOTE | 2025-03-31 20:00 | DVH ---
CHEST RADIOGRAPH REASON FOR EXAM: Pneumothorax progression COMPARISON: XY CHEST PORTABLE on DOS: 03/30/25, XY CHEST PORTABLE on DOS: 03/30/25, XY CHEST TWO VIEWS ROUTINE on DOS: 03/29/25, XY CHEST PORTABLE on DOS: 03/29/25, XY CHEST XRAY 1 VIEW on DOS: 03/29/25 TECHNIQUE: One view of the chest is provided FINDINGS: The cardiomediastinal silhouette is within normal limits for size. There is no significant pleural effusion. The left chest tube is unchanged in position. There is moderate-sized left apical pneumothorax, significantly increased in size. IMPRESSION: Moderate-sized left apical pneumothorax, significantly increased in size compared with the most recen t prior study.
--- NOTE | 2025-03-31 22:34 | DVHPN2 ---
Progress Note - Dictate Date Seen: Mar 31, 2025 Medical Necessity Reason Pt with a Central, PICC or Fol: No Subjective Patient seen and examined at bedside. Remains on supplemental oxygen Overnight events reviewed. vital signs Vital Sign Date Time Temp Pulse Resp B/P (MAP) Pulse Ox O2 Delivery O2 Flow Rate FiO2 03/31/25 17:00 98.3 52 18 97/52 (67) 100 98.3 03/31/25 08:00 Nasal Cannula* 2 28 Total Intake and Output 03/30/25 03/30/25 03/31/25 15:00 23:00 07:00 Intake Total 50 ml 650 ml 170 ml Balance 50 ml 650 ml 170 ml medications Current Medications Medications Dose Ordered Sig/Antoni Route Start Time Stop Time Status Last Admin Dose Admin Sodium Chloride 10 ml Q8HR IV 03/29/25 22:00 03/31/25 21:25 10 ML Docusate Sodium 100 mg BIDPRN PRN PO 03/29/25 19:45 Acetaminophen 650 mg Q6HP PRN PO 03/29/25 19:45 Hydromorphone HCl 0.5 mg Q4HP PRN IV 03/29/25 19:45 Hold 03/30/25 03:25 0.5 MG Ondansetron HCl 4 mg Q4HP PRN IV 03/29/25 19:45 03/30/25 18:33 4 MG Enoxaparin Sodium 40 mg DAILY SC 03/30/25 10:00 03/31/25 10:30 40 MG Cefazolin Sodium 50 ml @ 100 mls/hr Q8H IV 03/29/25 19:45 03/31/25 19:38 100 MLS/HR Morphine Sulfate 1 mg Q4HP PRN IV 03/30/25 16:15 Acetaminophen/ Hydrocodone Bitart 1 tab Q4HP PRN PO 03/30/25 16:15 03/31/25 20:15 1 TAB objective Gen.: Patient lying in bed in no apparent distress. On supplemental oxygen. Head: Normocephalic, atraumatic. Eyes: EOMI/PERRLA. Ears: Normal hearing. Normal anatomy. Neck/trachea: Trachea midline, supple. Nose: Normal external anatomy. Mouth: Moist mucous membranes. Chest: Decreased air entry bilaterally. No wheezing or rhonchi. Cardiovascular: Positive S1, positive S2. Regular rate and rhythm. Abdomen: Positive bowel sounds in all 4 quadrants. Soft, non-tender, non- distended. : Deferred. Rectal: Deferred. Skin: Warm, dry. Intact. Extremities: 2+ radial pulses bilaterally. No lower extremity edema. Neuro: Awake, alert, oriented x3. No gross motor or sensory deficits. Cranial nerves II through XII intact. Gait not assessed. laboratory and microbiology Laboratory Tests 03/31/25 05:06 Test 03/31/25 05:06 Range/Units Serum Glucose 80 74-106 mg/dL Assessment/Plan Impression: Left Pneumothorax Acute hypoxic respiratory failure Dependence on supplemental oxygen Vaping use Cannabinoid use Events: Remains on supplemental oxygen, 3 LPM NC Taper O2 as tolerated Continue antibiotics Incentive spirometry Chest tube in place - continue low wall suction No subcutaneous emphysema Minimal drainage of serous fluid. Pain control Avoid oversedation Lovenox for DVT ppx. Labs and imaging reviewed. Rest of plan as noted below. Plan: Supplemental oxygen Titrate to keep O2 sats above 92%. Monitor chest tube output Continue antibiotics Incentive spirometry Pain control Monitor renal function. Monitor electrolytes. Supplement as necessary. Monitor ins and outs. DVT prophylaxis. Prognosis: Poor given patient's multiple co-morbidities. Rest of plan per hospitalist and other consultants. Thank you, Dr. Mcmullen, for allowing me to participate in this patient's care. Further recommendations will depend on the patient's clinical course. Please do not hesitate to contact me if you have any questions or concerns. This medical document was created using an electronic medical record system with [employer] dictation system. Although these documentations are being carefully reviewed, there may still be some phonetic and typographical changes. The errors are purely typographical, due to imperfection on the software program, and do not reflect any compromise in the patient's medical care. Plan discussed with: Patient, Other (ADE Lange) ENEDINA BELL MD Mar 31, 2025 22:34
[2025-04-01] VITALS (8 sets, daily range): BP systolic 95–110; BP diastolic 55–75; PULSE 46–63; RESP 16–18; TEMP 97.7–98.2; O2SAT 100
--- NOTE | 2025-04-01 06:38 | DVH ---
CHEST RADIOGRAPH Indication: Interval changes in left pneumothorax, L chest tube Technique: Single frontal view of the chest was obtained COMPARISON: XY CHEST XRAY 1 VIEW on DOS: 03/31/25, XY CHEST PORTABLE on DOS: 03/30/25, XY CHEST PORTABL E on DOS: 03/30/25, XY CHEST TWO VIEWS ROUTINE on DOS: 03/29/25, XY CHEST PORTABLE on DOS: 03/29/25 FINDINGS: Lines and Tubes: Stable position of left apical small bore chest tube. Lungs: Interval resolution of left pneumothorax. No evidence of focal consolidation or pleural effus ion. Cardiomediastinal contours: Unremarkable Bones: Unremarkable IMPRESSION: 1. Interval resolution of left apical pneumothorax with left chest tube in stable position.
[2025-04-01 08:30] LABS: Hematocrit 38.3 % (36.0-46.0); Hemoglobin 13.2 g/dL (12.2-16.2); Mean Corpuscular Hemoglobin 31.9 pg (28.0-32.0); Mean Corpuscular Volume 92.4 fL (80.0-100.0); Nucleated Red Blood Cells % 0.3 %
[2025-04-01] MEDS: MORPHINE SULFATE INJ 2 MG/ml SYRG IV PRN (08:57)
[2025-04-01 09:19] LABS: Albumin 4.0 g/dL (3.2-4.8); Alkaline Phosphatase 46 U/L (46-116); Anion Gap 12 (5-15); BUN/Creatinine Ratio 13.0 (10.0-20.0); Calcium 9.0 mg/dL (8.7-10.4); Carbon Dioxide 24 mmol/L (20-31); Chloride 105 mmol/L (98-107); Glucose 81 mg/dL (74-106); Potassium 4.1 mmol/L (3.5-5.1); Sodium 141 mmol/L (136-145); Total Protein 6.3 g/dL (5.7-8.2)
[2025-04-01 09:21] LABS: Alanine Aminotransferase < 9 U/L (7-40); Bilirubin, Total 1.4 mg/dL (0.2-1.0); Blood Urea Nitrogen 9 mg/dL (9-23)
--- NOTE | 2025-04-01 09:45 | DVHPN2 ---
Subjective Patient is seen at bedside today,. Doing well, needs pain control. Reviewed: Care Plan Changes from previous H/P or p: No Changes General: Per HPI Objective Vitals Vital Signs Date Time Temp Pulse Resp B/P (MAP) Pulse Ox O2 Delivery O2 Flow Rate FiO2 04/01/25 08:57 61 16 102/70 04/01/25 08:44 98.1 100 98.1 03/31/25 20:00 Nasal Cannula* 3 32 Intake/Output Intake and Output 04/01/25 07:00 Intake Total 930 ml Balance 930 ml Intake Oral 880 ml IV Total 50 ml # Voids 5 Exam GEN: Healthy appearing, well-developed, NAD. HEENT: NC/AT; MMM. CV: RRR, no m/r/g. LUNGS: CTAB, no w/r/c. Chest tube anterior chest wall, lateral clavicular line on left side, good breath sounds in all adames. Chest tube was connected to the suction. ABD: Soft, NT/ND, NBS, no masses or organomegaly. EXT: skin Warm, well perfused. no rashes. No clubbing, cyanosis, or edema. NEURO: Ambulating with no limitations. No focal deficits. Medications Current Medications Medications Dose Ordered Sig/Antoni Route Start Time Stop Time Status Last Admin Dose Admin Sodium Chloride 10 ml Q8HR IV 03/29/25 22:00 04/01/25 05:44 10 ML Docusate Sodium 100 mg BIDPRN PRN PO 03/29/25 19:45 Acetaminophen 650 mg Q6HP PRN PO 03/29/25 19:45 Hydromorphone HCl 0.5 mg Q4HP PRN IV 03/29/25 19:45 Hold 03/30/25 03:25 0.5 MG Ondansetron HCl 4 mg Q4HP PRN IV 03/29/25 19:45 03/30/25 18:33 4 MG Enoxaparin Sodium 40 mg DAILY SC 03/30/25 10:00 03/31/25 10:30 40 MG Cefazolin Sodium 50 ml @ 100 mls/hr Q8H IV 03/29/25 19:45 04/01/25 02:48 100 MLS/HR Morphine Sulfate 1 mg Q4HP PRN IV 03/30/25 16:15 04/01/25 08:57 1 MG Acetaminophen/ Hydrocodone Bitart 1 tab Q4HP PRN PO 03/30/25 16:15 03/31/25 20:15 1 TAB Laboratory Results Laboratory Tests 04/01/25 08:00 Chemistry Test 04/01/25 08:00 Albumin 4.0 g/dL (3.2-4.8) Calcium Level 9.0 mg/dL (8.7-10.4) Total Protein 6.3 g/dL (5.7-8.2) LFT Test 04/01/25 08:00 Alanine Aminotransferase (ALT) < 9 U/L (7-40) Alkaline Phosphatase 46 U/L (46-116) Aspartate Amino Transferase (AST) 13 U/L (13-40) Total Bilirubin 1.4 mg/dL (0.2-1.0) H Urinalysis Test 03/29/25 18:31 Urine Color Light-yellow (Yellow) Urine Clarity Clear (Clear) Urine pH 6.0 (5.0-9.0) Urine Specific [place] 1.006 (1.001-1.035) Urine Protein Negative (Negative) Urine Ketones Trace (Negative) Urine Blood Negative /uL (Negative) Urine Nitrite Negative (Negative) Urine Bilirubin Negative (Negative) Urine Urobilinogen Normal mg/dL (Negative) Urine Leukocyte Esterase Negative /uL (Negative) Urine RBC None seen /hpf (0 - 4) Urine Microscopic WBC 2 /HPF (0-5) Urine Squamous Epithelial Cells Few /hpf (<5) Urine Bacteria Few /hpf (None Seen) H Urine Glucose Normal mg/dL (Normal) Urine Test Negative (Negative) Labs and/or images reviewed: Labs reviewed by me, Image(s) reviewed by me Assessment/Plan Assessment/Plan 25-year-old female presents to emergency department for three day history of left-sided chest pain radiating to her left shoulder. Pain is constant but worse with movement of the upper body and bending. Denies any other associated symptoms. 03/30: Patient is seen at bedside, doing well, anorexic BMI 16 ,. Patient was not seen by compton today as order was entered incorrectly. We will fix order for Dr. Regan. Otherwise continue chest tube. Pain control. 03/31: Patient is seen by Dr. Regan today, patient will be tried on clamp trial we will repeat chest x-ray and turned back of suctioned on. We will repeat x- ray tomorrow a.m. Dr. Regan we will continue following. 04/01: Yesterday clamp trial lead to worsening of pneumothorax apical. Suction was put on but on intermittent low, so pneumothorax is in x-ray with interval resolution but still present. Pulmonology follows up this morning and places her on continuous. Pulmonology plan is on CT chest tomorrow with Heimlich trial, family updated. Mother is concerned above the episode of? Seizing spasming, we will get Neurology eval. Diagnosis: Left apical pneumothorax spontaneous Severe protein calorie malnutrition Anorexia Neutrophilia Hyperbilirubinemia Plan: PULM consult - maintain chest tube, defer chest tube management per palm. Pain control PRN and analgesia Antiemetic prn Diet resume Maintenance IV fluids Neurology consult Ancef Lovenox Med surge Full code Plan discussed with: Patient My Orders Orders - OSEAS ALEJO MD Procedure Category Date Status Time Stat Ekg With Cp LOYD 03/31/25 In Process 11:47 Food Service Attendant ORDERS 03/31/25 Transmitted 12:13 Transfer Service ORDERS 03/31/25 Transmitted 16:57 Chest Xray 1 View XY 03/31/25 Resulted 17:36 Date of Service: Apr 01, 2025 Billing Provider: OSEAS ALEJO MD Common Visit Codes: [id number] INP/OBS CARE(HIGH) OSEAS ALEJO MD Apr 01, 2025 09:45
[2025-04-01] MEDS: ENSURE CLEAR Mixed Berry 8oz Carton PO SCH (18:00)
--- NOTE | 2025-04-01 22:41 | DVHPN2 ---
Progress Note - Dictate Date Seen: Apr 01, 2025 Medical Necessity Reason Pt with a Central, PICC or Fol: No Subjective Patient seen and examined at bedside. Remains on supplemental oxygen Overnight events reviewed. vital signs Vital Sign Date Time Temp Pulse Resp B/P (MAP) Pulse Ox O2 Delivery O2 Flow Rate FiO2 04/01/25 20:58 98.2 53 18 107/60 (76) 100 98.2 04/01/25 20:00 Nasal Cannula* 3 32 Total Intake and Output 03/31/25 03/31/25 04/01/25 15:00 23:00 07:00 Intake Total 270 ml 300 ml 360 ml Balance 270 ml 300 ml 360 ml medications Current Medications Medications Dose Ordered Sig/Antoni Route Start Time Stop Time Status Last Admin Dose Admin Sodium Chloride 10 ml Q8HR IV 03/29/25 22:00 04/01/25 22:24 10 ML Docusate Sodium 100 mg BIDPRN PRN PO 03/29/25 19:45 Acetaminophen 650 mg Q6HP PRN PO 03/29/25 19:45 Hydromorphone HCl 0.5 mg Q4HP PRN IV 03/29/25 19:45 Hold 03/30/25 03:25 0.5 MG Ondansetron HCl 4 mg Q4HP PRN IV 03/29/25 19:45 04/01/25 20:34 4 MG Enoxaparin Sodium 40 mg DAILY SC 03/30/25 10:00 04/01/25 12:44 40 MG Cefazolin Sodium 50 ml @ 100 mls/hr Q8H IV 03/29/25 19:45 04/01/25 20:04 100 MLS/HR Morphine Sulfate 1 mg Q4HP PRN IV 03/30/25 16:15 04/01/25 20:04 1 MG Acetaminophen/ Hydrocodone Bitart 1 tab Q4HP PRN PO 03/30/25 16:15 04/01/25 16:41 1 TAB Enteral Nutritional Formula 240 ml BIDWM PO 04/01/25 18:00 04/01/25 18:00 240 ML objective Gen.: Patient lying in bed in no apparent distress. On supplemental oxygen. Head: Normocephalic, atraumatic. Eyes: EOMI/PERRLA. Ears: Normal hearing. Normal anatomy. Neck/trachea: Trachea midline, supple. Nose: Normal external anatomy. Mouth: Moist mucous membranes. Chest: Decreased air entry bilaterally. No wheezing or rhonchi. Cardiovascular: Positive S1, positive S2. Regular rate and rhythm. Abdomen: Positive bowel sounds in all 4 quadrants. Soft, non-tender, non- distended. : Deferred. Rectal: Deferred. Skin: Warm, dry. Intact. Extremities: 2+ radial pulses bilaterally. No lower extremity edema. Neuro: Awake, alert, oriented x3. No gross motor or sensory deficits. Cranial nerves II through XII intact. Gait not assessed. laboratory and microbiology Laboratory Tests 04/01/25 08:00 Test 04/01/25 08:00 Range/Units Serum Glucose 81 74-106 mg/dL Assessment/Plan Impression: Left Pneumothorax Acute hypoxic respiratory failure Dependence on supplemental oxygen Vaping use Cannabinoid use Events: Remains on supplemental oxygen, 3 LPM NC Taper O2 as tolerated Continue antibiotics Incentive spirometry Chest tube in place - continue low wall suction No subcutaneous emphysema Minimal drainage of serous fluid. Note, chest x-ray after taking off suction shows re-development of pneumothorax. Continue to low wall suction, continuous. We will obtain CT chest on 04/02/25. Pain control Avoid oversedation Lovenox for DVT ppx. Labs and imaging reviewed. Rest of plan as noted below. Plan: Supplemental oxygen Titrate to keep O2 sats above 92%. Monitor chest tube output Continue antibiotics Incentive spirometry Pain control Monitor renal function. Monitor electrolytes. Supplement as necessary. Monitor ins and outs. DVT prophylaxis. Prognosis: Poor given patient's multiple co-morbidities. Rest of plan per hospitalist and other consultants. Thank you, Dr. Mcmullen, for allowing me to participate in this patient's care. Further recommendations will depend on the patient's clinical course. Please do not hesitate to contact me if you have any questions or concerns. This medical document was created using an electronic medical record system with [employer] dictation system. Although these documentations are being carefully reviewed, there may still be some phonetic and typographical changes. The errors are purely typographical, due to imperfection on the software program, and do not reflect any compromise in the patient's medical care. Plan discussed with: Patient, Other (ADE Bui) ENEDINA BELL MD Apr 01, 2025 22:41
[2025-04-02] VITALS (8 sets, daily range): BP systolic 93–116; BP diastolic 51–69; PULSE 45–88; RESP 17–20; TEMP 97.6–99.7; O2SAT 98–100
[2025-04-02 07:50] LABS: Albumin 4.1 g/dL (3.2-4.8); Alkaline Phosphatase 47 U/L (46-116); Anion Gap 11 (5-15); BUN/Creatinine Ratio 9.9 (10.0-20.0); Calcium 8.8 mg/dL (8.7-10.4); Carbon Dioxide 26 mmol/L (20-31); Chloride 103 mmol/L (98-107); Glucose 83 mg/dL (74-106); Potassium 3.6 mmol/L (3.5-5.1); Sodium 140 mmol/L (136-145); Total Protein 6.5 g/dL (5.7-8.2)
[2025-04-02 07:53] LABS: Alanine Aminotransferase < 9 U/L (7-40); Bilirubin, Total 1.4 mg/dL (0.2-1.0); Blood Urea Nitrogen 7 mg/dL (9-23)
--- NOTE | 2025-04-02 11:01 | ECG ---
[facility] Test Date: 2025-03-29 Test Time: 16:14:38 Pat Name: WESLY LOPEZ Department: ED Room: 0297 Gender: F Egg Processor: ARINA : 2000 Requested By: JUAN PECK Order Number: [id number] Reading MD: Janes Maldonado Measurements Intervals [place] Rate: 53 P: 47 LA: 131 QRS: 40 QRSD: 81 T: 62 QT: 408 QTc: 383 Interpretive Statements Sinus rhythm Low voltage, precordial leads RSR' in V1 or V2, probably normal variant Electronically Signed On 04-04-2025 14:49:54 PDT by Janes Maldonado Please click the below link to view image of tracing.
--- NOTE | 2025-04-02 14:34 | DVH ---
Procedure: CT CHEST WITHOUT CONTRAST Reason for study/Clinical History: pneumothorax . reassess. off suction Comparison Study: XY CHEST XRAY 1 VIEW on DOS: 04/01/25, XY CHEST XRAY 1 VIEW on DOS: 03/31/25, XY CHEST PORTABLE on DOS: 03/30/25, XY CHEST PORTABLE on DOS: 03/30/25, XY CHEST TWO VIEWS ROUTINE on DOS: 03/29 TECHNIQUE: Multidetector CT of the chest was performed from the lung apices to the upper abdomen with out the use of intravenous contract. Axial, coronal and sagittal multiplanar reformats were performed . Radiation Dose Information: CT Dose: CTDI volume is 4.56 mGy. Dose-length product is 191.83 mGy*cm The dose indicators for CT are the volume Computed Tomography (CT) Dose Index (CTDIvol) and the Dose Length Product (DLP), and are measured in units of mGy and mGy-cm, respectively. These indicators are not patient dose, but values generated from the CT scanner acquisition factors. The report includes radiation exposure data for exposures received during this examination. FINDINGS: Lower neck: Unremarkable. Lungs: No focal consolidation. No suspicious pulmonary nodule. Heart/Vascular Structures: Normal heart size. No pericardial effusion. Lymph Nodes: No adenopathy Pleura: Trace left apical pneumothorax with left thora vent in satisfactory position. Musculoskeletal: No acute osseous abnormality. Soft tissues: Normal. Upper abdomen: Limited portions of the upper abdomen are unremarkable. IMPRESSION: Trace left apical pneumothorax with left thora vent in satisfactory position. Radiation optimization: All CT scans at this facility use at least one of these dose optimization paul hniques: automated exposure control mA and/or kV adjustment per patient size (includes targeted exam s where dose is matched to clinical indication) or iterative reconstruction.
[2025-04-02] MEDS: DOCUSATE SOD 100 MG CAP PO PRN (15:12)
--- NOTE | 2025-04-02 15:36 | DVHPN2 ---
Subjective Patient is seen at bedside today,. Doing well, needs pain control. Reviewed: Care Plan Changes from previous H/P or p: No Changes General: Per HPI Objective Vitals Vital Signs Date Time Temp Pulse Resp B/P (MAP) Pulse Ox O2 Delivery O2 Flow Rate FiO2 04/02/25 13:17 97.6 70 20 93/56 (68) 99 97.6 04/02/25 08:00 Nasal Cannula* 3 32 Intake/Output Intake and Output 04/02/25 07:00 Intake Total 1218 ml Balance 1218 ml Intake Oral 1118 ml IV Total 100 ml # Voids 4 Exam GEN: Healthy appearing, well-developed, NAD. HEENT: NC/AT; MMM. CV: RRR, no m/r/g. LUNGS: CTAB, no w/r/c. Chest tube anterior chest wall, lateral clavicular line on left side, good breath sounds in all adames. Chest tube was connected to the suction. ABD: Soft, NT/ND, NBS, no masses or organomegaly. EXT: skin Warm, well perfused. no rashes. No clubbing, cyanosis, or edema. NEURO: Ambulating with no limitations. No focal deficits. Medications Current Medications Medications Dose Ordered Sig/Antoni Route Start Time Stop Time Status Last Admin Dose Admin Sodium Chloride 10 ml Q8HR IV 03/29/25 22:00 04/02/25 14:00 10 ML Docusate Sodium 100 mg BIDPRN PRN PO 03/29/25 19:45 04/02/25 15:12 100 MG Acetaminophen 650 mg Q6HP PRN PO 03/29/25 19:45 Hydromorphone HCl 0.5 mg Q4HP PRN IV 03/29/25 19:45 Hold 03/30/25 03:25 0.5 MG Ondansetron HCl 4 mg Q4HP PRN IV 03/29/25 19:45 04/02/25 15:12 4 MG Enoxaparin Sodium 40 mg DAILY SC 03/30/25 10:00 04/02/25 10:55 40 MG Cefazolin Sodium 50 ml @ 100 mls/hr Q8H IV 03/29/25 19:45 04/02/25 12:03 100 MLS/HR Morphine Sulfate 1 mg Q4HP PRN IV 03/30/25 16:15 04/01/25 20:04 1 MG Acetaminophen/ Hydrocodone Bitart 1 tab Q4HP PRN PO 03/30/25 16:15 04/02/25 15:13 1 TAB Enteral Nutritional Formula 240 ml BIDWM PO 04/01/25 18:00 04/02/25 08:19 240 ML Laboratory Results Laboratory Tests 04/01/25 08:00 04/02/25 06:45 Chemistry Test 04/02/25 06:45 Albumin 4.1 g/dL (3.2-4.8) Calcium Level 8.8 mg/dL (8.7-10.4) Total Protein 6.5 g/dL (5.7-8.2) LFT Test 04/02/25 06:45 Alanine Aminotransferase (ALT) < 9 U/L (7-40) Alkaline Phosphatase 47 U/L (46-116) Aspartate Amino Transferase (AST) 15 U/L (13-40) Total Bilirubin 1.4 mg/dL (0.2-1.0) H Urinalysis Test 03/29/25 18:31 Urine Color Light-yellow (Yellow) Urine Clarity Clear (Clear) Urine pH 6.0 (5.0-9.0) Urine Specific [place] 1.006 (1.001-1.035) Urine Protein Negative (Negative) Urine Ketones Trace (Negative) Urine Blood Negative /uL (Negative) Urine Nitrite Negative (Negative) Urine Bilirubin Negative (Negative) Urine Urobilinogen Normal mg/dL (Negative) Urine Leukocyte Esterase Negative /uL (Negative) Urine RBC None seen /hpf (0 - 4) Urine Microscopic WBC 2 /HPF (0-5) Urine Squamous Epithelial Cells Few /hpf (<5) Urine Bacteria Few /hpf (None Seen) H Urine Glucose Normal mg/dL (Normal) Urine Test Negative (Negative) Labs and/or images reviewed: Labs reviewed by me, Image(s) reviewed by me Assessment/Plan Assessment/Plan 25-year-old female presents to emergency department for three day history of left-sided chest pain radiating to her left shoulder. Pain is constant but worse with movement of the upper body and bending. Denies any other associated symptoms. 03/30: Patient is seen at bedside, doing well, anorexic BMI 16 ,. Patient was not seen by ivel today as order was entered incorrectly. We will fix order for Dr. Regan. Otherwise continue chest tube. Pain control. 03/31: Patient is seen by Dr. Regan today, patient will be tried on clamp trial we will repeat chest x-ray and turned back of suctioned on. We will repeat x- ray tomorrow a.m. Dr. Regan we will continue following. 04/01: Yesterday clamp trial lead to worsening of pneumothorax apical. Suction was put on but on intermittent low, so pneumothorax is in x-ray with interval resolution but still present. Pulmonology follows up this morning and places her on continuous. Pulmonology plan is on CT chest tomorrow with Heimlich trial, family updated. Mother is concerned above the episode of? Seizing spasming, we will get Neurology eval. 04/02: CT chest today with clamp. Pulmonology to follow up. Continue oxygen nasal cannula,. Neurology to eval for that 1 episode of? Seizure Diagnosis: Left apical pneumothorax spontaneous Severe protein calorie malnutrition Anorexia Neutrophilia Hyperbilirubinemia Plan: PULM consult - maintain chest tube, defer chest tube management per palm. Pain control PRN and analgesia Antiemetic prn Diet resume Maintenance IV fluids Neurology consult Ancef Lovenox Med surge Full code Plan discussed with: Patient My Orders Orders - OSEAS ALEJO MD Procedure Category Date Status Time Nutritional PHA 04/01/25 In Process Supplements (Ensure 18:00 * Neurology Consult CONS 04/01/25 Transmitted 16:[address] 04/02/25 Resulted 12:05 Date of Service: Apr 02, 2025 Billing Provider: OSEAS ALEJO MD Common Visit Codes: [id number] INP/OBS CARE(HIGH) OSAES ALEJO MD Apr 02, 2025 15:36
--- NOTE | 2025-04-02 20:22 | DVHINCON2 ---
Date of service: Apr 02, [address] Gabrielle Mcmullen Reason for Consultation Simple partial seizure evaluation History of Present Illness Ms. Dougherty is a 25 years old right-handed female otherwise healthy, she came to the [facility] on 03/29/2025 with a chief complaint of left chest pain radiating to the left shoulder, in the hospital, the patient was found to have left pneumothorax and she status post she is status post chest tube, but she also has other complaint in the hospital Around 10:00 a.m. on 03/30/2025, she developed tingling starting from the all the bilateral fingers, spreading upwards to whole upper extremities, she also had cramping in both hands, lightheadedness, shortness of breath. Around 11:00 a.m., she her problem, including sharp breath, lightheadedness Versed, she also had pain in the chest tube side, more tingling in fingers of both hands, in the lips, she is not able to move her lips, hands, the hands were cold, he was able to look around, able to hear people talking around her, but was not able to answer the questions or talk back. He denies loss of consciousness. She has never had similar problem before She has never been diagnosed with anxiety, but she reports answers, and panicky experience previously. She is interested in seeing a tele psychiatrist in the hospital UDS, 03/29/2025: Unremarkable CBC, 04/01/2025: Unremarkable TBI/AST/ALT/AP, 03/30/2025: 2.3/15/14/6. 03/31/2025: 2.4//10/52. 04/02/2025: 1.4// Chest x-ray, 03/29/2025 16:15: 1. Left apical pneumothorax measures 2.9 cm. 2. Reactive airways disease. Chest x-ray, 03/29/252023:Left upper hemithoracic pleural catheter placement. No interval change. Trace residual likely apical pneumothorax. Overall no significant interval change Past Medical History No major medical problems Past Surgical History No major surgeries before this hospitalization Family History: FH: bipolar disorder G8 FATHER FH: cholecystectomy G8 MOTHER FH: hyperthyroidism G8 MOTHER Thyroid disease Family History Hypertension, thyroid disorder, lung cancer, bipolar disorder Social History She E-smokes sometimes, she used marijuana sometimes, but denies a history of drug/alcohol abuse Allergies: Coded Allergies: NO KNOWN ALLERGIES (Unverified , 03/29/25) Review of Systems As above, the other systems are negative Vital Signs Vital Signs Date Time Temp Pulse Resp B/P (MAP) Pulse Ox O2 Delivery O2 Flow Rate FiO2 04/02/25 16:49 98.2 70 18 107/67 (80) 98 98.2 04/02/25 08:00 Nasal Cannula* 3 32 Physical Exam GENERAL EXAM: General: the patient is well developed and nourished. No acute distress. HEENT: Normocephalic, neck is supple, no carotid bruits. No mass. The throat is Mallampati grade RESPIRATORY: Normal respiratory effort with symmetrical lung expansion. Lungs clear to auscultation. CARDIOVASCULAR: Regular rate and rhythm with no murmurs. S1, S2. Status post left chest tube ABDOMEN: Soft, nontender, normal bowel sound NEUROLOGICAL: MENTAL STATUS: Awake and alert. Oriented to person, place, time and general circumstances. Able to give personal history SPEECH, LANGUAGE, HIGHER CORTICAL FUNCTION: no aphasia or dysathria. CRANIAL NERVES: #2: Intact visual adames to confrontation. The optic discs were sharp. Retinal background was uniformly pink in appearance. There was no hemorrhages or exudates. #3,4,6: Pupils are equal, round and reactive. EOMs full and conjugate. Mild bilateral gaze evoked nystagmus. #5: Facial sensation intact in all three divisions bilaterally. Mandibular strength intact. #7: Facial muscles symmetrical and strength intact. #8: Hearing grossly normal to voice. #9,10: Uvula and soft palate rise in the midline. Swallow and voice are normal. #11: Trapezius and sternomastoid strength intact bilaterally. #12: Tongue midline. No fasciculations or atrophy. SENSATION: Sensation to touch and pinprick is normal. MOTOR: Normal tone in the upper and lower extremity. Normal muscle bulk. No fasciculations. No abnormal movements or posturing. Muscle strength of the major groups in the upper extremities is 5/5. Muscle strength of the major groups in the lower extremities is 5/5. REFLEXES: Deep tendon reflexes normal and symmetrical. No pathological reflexes. CEREBELLAR/COORDINATION: Finger to nose and heel to moore are normal bilaterally. GAIT/STATION: deferred. Labs/Diagnostic Data Labs Test 04/02/25 06:45 04/01/25 08:00 03/29/25 18:31 03/29/25 17:23 Range/Units Sodium Level 140 136-145 mmol/L Potassium Level 3.6 3.5-5.1 mmol/L Chloride Level 103 98-107 mmol/L Carbon Dioxide Level 26 20-31 mmol/L Anion Gap 11 5-15 Blood Urea Nitrogen 7 L 9-23 mg/dL Creatinine 0.71 0.550-1.02 mg/dL Glomerular Filtration Rate Calc 122 >90 mL/min BUN/Creatinine Ratio 9.9 L 10.0-20.0 Serum Glucose 83 74-106 mg/dL Calcium Level 8.8 8.7-10.4 mg/dL Total Bilirubin 1.4 H 0.2-1.0 mg/dL Aspartate Amino Transferase (AST) 15 13-40 U/L Alanine Aminotransferase (ALT) < 9 7-40 U/L Alkaline Phosphatase 47 46-116 U/L Total Protein 6.5 5.7-8.2 g/dL Albumin 4.1 3.2-4.8 g/dL White Blood Count 6.0 4.4-10.8 10^3/uL Red Blood Count 4.14 4.0-5.20 10^6/uL Hemoglobin 13.2 12.2-16.2 g/dL Hematocrit 38.3 36.0-46.0 % Mean Corpuscular Volume 92.4 80.0-100.0 fL Mean Corpuscular Hemoglobin 31.9 28.0-32.0 pg Mean Corpuscular Hemoglobin Concent 34.5 32.0-36.0 g/dL Red Cell Distribution Width 12.6 11.8-14.3 % Platelet Count 179 140-450 10^3/uL Mean Platelet Volume 8.5 6.9-10.8 fL Neutrophils (%) (Auto) 60.2 37.0-80.0 % Lymphocytes (%) (Auto) 27.9 10.0-50.0 % Monocytes (%) (Auto) 10.0 0.0-12.0 % Eosinophils (%) (Auto) 1.3 0.0-7.0 % Basophils (%) (Auto) 0.6 0.0-2.0 % Neutrophils # (Auto) 3.6 1.6-8.6 10 ^3/uL Lymphocytes # (Auto) 1.7 0.4-5.4 10 ^3/uL Monocytes # (Auto) 0.6 0-1.3 10 ^3/uL Eosinophils # (Auto) 0.1 0-0.8 10 ^3/uL Basophils # (Auto) 0 0-0.2 10 ^3/uL Nucleated Red Blood Cells 0.3 % Urine Color Light-yellow Yellow Urine Clarity Clear Clear Urine pH 6.0 5.0-9.0 Urine Specific [place] 1.006 1.001-1.035 Urine Protein Negative Negative Urine Ketones Trace Negative Urine Blood Negative Negative /uL Urine Nitrite Negative Negative Urine Bilirubin Negative Negative Urine Urobilinogen Normal Negative mg/dL Urine Leukocyte Esterase Negative Negative /uL Urine RBC None seen 0 - 4 /hpf Urine Microscopic WBC 2 0-5 /HPF Urine Squamous Epithelial Cells Few <5 /hpf Urine Bacteria Few H None Seen /hpf Urine Glucose Normal Normal mg/dL Urine Test Negative Negative Troponin I High Sensitivity < 3 L </=34 ng/L Test 03/29/25 16:30 Range/Units D-Dimer, Quantitative < 0.19 0.0-0.49 mg/L FEU Assessment Episodic event on 04/30/2025 ? Rule out partial seizure, less likely ? Anxiety related Pneumothorax status post chest tube Plan/Recommendation Monitoring Supportive treatment Telemetry EEG MR brain scan [facility] Pain Management Tele psych evaluation Prognosis: Poor This medical document was created using an electronic medical record system with [employer] dictation system. Although this document has been carefully reviewed, there may still be some phonetic and typographical errors. These areas are purely typographical due to imperfections of the software programs, and do not reflect any compromise in the patient's medical care. Plan discussed with: Patient, Other JOHN KAT MD Apr 02, 2025 20:22
[2025-04-02] MEDS ORDERED: LORazepam 2MG/ML-1ML VIAL IV PRN (21:15)
[2025-04-02] MEDS ORDERED: LORazepam 0.5 MG TAB PO PRN (21:15)
--- NOTE | 2025-04-02 23:19 | DVHPN2 ---
Progress Note - Dictate Date Seen: Apr 02, 2025 Medical Necessity Reason Pt with a Central, PICC or Fol: No Subjective Patient seen and examined at bedside. Remains on supplemental oxygen Overnight events reviewed. vital signs Vital Sign Date Time Temp Pulse Resp B/P (MAP) Pulse Ox O2 Delivery O2 Flow Rate FiO2 04/02/25 21:00 99.7 88 18 116/69 (85) 100 99.7 04/02/25 08:00 Nasal Cannula* 3 32 Total Intake and Output 04/01/25 04/01/25 04/02/25 15:00 23:00 07:00 Intake Total 450 ml 768 ml Balance 450 ml 768 ml medications Current Medications Medications Dose Ordered Sig/Antoni Route Start Time Stop Time Status Last Admin Dose Admin Sodium Chloride 10 ml Q8HR IV 03/29/25 22:00 04/02/25 14:00 10 ML Docusate Sodium 100 mg BIDPRN PRN PO 03/29/25 19:45 04/02/25 15:12 100 MG Acetaminophen 650 mg Q6HP PRN PO 03/29/25 19:45 Hydromorphone HCl 0.5 mg Q4HP PRN IV 03/29/25 19:45 Hold 03/30/25 03:25 0.5 MG Ondansetron HCl 4 mg Q4HP PRN IV 03/29/25 19:45 04/02/25 20:14 4 MG Enoxaparin Sodium 40 mg DAILY SC 03/30/25 10:00 04/02/25 10:55 40 MG Cefazolin Sodium 50 ml @ 100 mls/hr Q8H IV 03/29/25 19:45 04/02/25 20:07 100 MLS/HR Morphine Sulfate 1 mg Q4HP PRN IV 03/30/25 16:15 04/01/25 20:04 1 MG Acetaminophen/ Hydrocodone Bitart 1 tab Q4HP PRN PO 03/30/25 16:15 04/02/25 20:15 1 TAB Enteral Nutritional Formula 240 ml BIDWM PO 04/01/25 18:00 04/02/25 18:27 240 ML Lorazepam 1 mg ONCE PRN IV 04/02/25 21:15 Lorazepam 0.5 mg Q8HP PRN PO 04/02/25 21:15 objective Gen.: Patient lying in bed in no apparent distress. On supplemental oxygen. Head: Normocephalic, atraumatic. Eyes: EOMI/PERRLA. Ears: Normal hearing. Normal anatomy. Neck/trachea: Trachea midline, supple. Nose: Normal external anatomy. Mouth: Moist mucous membranes. Chest: Decreased air entry bilaterally. No wheezing or rhonchi. Cardiovascular: Positive S1, positive S2. Regular rate and rhythm. Abdomen: Positive bowel sounds in all 4 quadrants. Soft, non-tender, non- distended. : Deferred. Rectal: Deferred. Skin: Warm, dry. Intact. Extremities: 2+ radial pulses bilaterally. No lower extremity edema. Neuro: Awake, alert, oriented x3. No gross motor or sensory deficits. Cranial nerves II through XII intact. Gait not assessed. laboratory and microbiology Laboratory Tests 04/02/25 06:45 04/01/25 08:00 Test 04/02/25 06:45 Range/Units Serum Glucose 83 74-106 mg/dL Assessment/Plan Impression: Left Pneumothorax Acute hypoxic respiratory failure Dependence on supplemental oxygen Vaping use Cannabinoid use Events: Remains on supplemental oxygen, 3 LPM NC Taper O2 as tolerated Continue antibiotics Incentive spirometry Chest tube in place - continue low wall suction No subcutaneous emphysema Minimal drainage of serous fluid. Note, chest x-ray after taking off suction showed re-development of pneumothorax. Continue to low wall suction, continuous. CT chest done today reviewed; Trace left apical pneumothorax with left thora vent in satisfactory position. Pain control Avoid oversedation Lovenox for DVT ppx. Labs and imaging reviewed. Rest of plan as noted below. Plan: Supplemental oxygen Titrate to keep O2 sats above 92%. Monitor chest tube output Continue antibiotics Incentive spirometry Pain control Monitor renal function. Monitor electrolytes. Supplement as necessary. Monitor ins and outs. DVT prophylaxis. Prognosis: Poor given patient's multiple co-morbidities. Rest of plan per hospitalist and other consultants. Thank you, Dr. Mcmullen, for allowing me to participate in this patient's care. Further recommendations will depend on the patient's clinical course. Please do not hesitate to contact me if you have any questions or concerns. This medical document was created using an electronic medical record system with [employer] system. Although these documentations are being carefully reviewed, there may still be some phonetic and typographical changes. The errors are purely typographical, due to imperfection on the software program, and do not reflect any compromise in the patient's medical care. Dietary Evaluation Review Comments: Nutrition Recommendation 1) Ensure Enlive 240ml TID 2) Monitor PO intake, lab values, weight trend, and I/O Expected Outcomes/Goals: To meet >75% estimated needs Fu 3-5 days Plan discussed with: Patient, Other (ADE [place]/Ramya) ENEDINA BELL MD Apr 02, 2025 23:19
[2025-04-03] VITALS (8 sets, daily range): BP systolic 91–110; BP diastolic 47–68; PULSE 52–78; RESP 17–18; TEMP 97.6–99.1; O2SAT 100
[2025-04-03 07:38] LABS: Alanine Aminotransferase 10 U/L (7-40); Albumin 4.0 g/dL (3.2-4.8); Alkaline Phosphatase 46 U/L (46-116); Anion Gap 8 (5-15); BUN/Creatinine Ratio 8.0 (10.0-20.0); Calcium 9.0 mg/dL (8.7-10.4); Carbon Dioxide 29 mmol/L (20-31); Chloride 106 mmol/L (98-107); Glucose 98 mg/dL (74-106); Potassium 3.6 mmol/L (3.5-5.1); Sodium 143 mmol/L (136-145); Total Protein 6.3 g/dL (5.7-8.2)
[2025-04-03 07:39] LABS: Bilirubin, Total 1.0 mg/dL (0.2-1.0)
[2025-04-03 07:51] LABS: Blood Urea Nitrogen 6 mg/dL (9-23)
--- NOTE | 2025-04-03 08:56 | DVHPN2 ---
Subjective Patient is seen at bedside today,. Doing well, needs pain control. Reviewed: Care Plan Changes from previous H/P or p: No Changes General: Per HPI Objective Vitals Vital Signs Date Time Temp Pulse Resp B/P (MAP) Pulse Ox O2 Delivery O2 Flow Rate FiO2 04/03/25 04:57 97.6 57 17 93/57 (69) 100 97.6 04/02/25 20:00 Nasal Cannula* 3 32 Intake/Output Intake and Output 04/03/25 07:00 Intake Total 3120 ml Output Total 4 ml Balance 3116 ml Intake Oral 3020 ml IV Total 100 ml Output Urine Total 4 ml Stool Total 0 ml # Voids 3 Exam GEN: Healthy appearing, well-developed, NAD. HEENT: NC/AT; MMM. CV: RRR, no m/r/g. LUNGS: CTAB, no w/r/c. Chest tube anterior chest wall, lateral clavicular line on left side, good breath sounds in all adames. Chest tube was connected to the suction. ABD: Soft, NT/ND, NBS, no masses or organomegaly. EXT: skin Warm, well perfused. no rashes. No clubbing, cyanosis, or edema. NEURO: Ambulating with no limitations. No focal deficits. Medications Current Medications Medications Dose Ordered Sig/Antoni Route Start Time Stop Time Status Last Admin Dose Admin Sodium Chloride 10 ml Q8HR IV 03/29/25 22:00 04/03/25 06:31 10 ML Docusate Sodium 100 mg BIDPRN PRN PO 03/29/25 19:45 04/02/25 15:12 100 MG Acetaminophen 650 mg Q6HP PRN PO 03/29/25 19:45 Hydromorphone HCl 0.5 mg Q4HP PRN IV 03/29/25 19:45 Hold 03/30/25 03:25 0.5 MG Ondansetron HCl 4 mg Q4HP PRN IV 03/29/25 19:45 04/03/25 00:46 4 MG Enoxaparin Sodium 40 mg DAILY SC 03/30/25 10:00 04/02/25 10:55 40 MG Cefazolin Sodium 50 ml @ 100 mls/hr Q8H IV 03/29/25 19:45 04/03/25 05:11 100 MLS/HR Morphine Sulfate 1 mg Q4HP PRN IV 03/30/25 16:15 04/01/25 20:04 1 MG Acetaminophen/ Hydrocodone Bitart 1 tab Q4HP PRN PO 03/30/25 16:15 04/03/25 00:46 1 TAB Enteral Nutritional Formula 240 ml BIDWM PO 04/01/25 18:00 04/03/25 08:19 240 ML Lorazepam 1 mg ONCE PRN IV 04/02/25 21:15 Lorazepam 0.5 mg Q8HP PRN PO 04/02/25 21:15 Laboratory Results Laboratory Tests 04/01/25 08:00 04/03/25 07:01 Chemistry Test 04/03/25 07:01 Albumin 4.0 g/dL (3.2-4.8) Calcium Level 9.0 mg/dL (8.7-10.4) Total Protein 6.3 g/dL (5.7-8.2) LFT Test 04/03/25 07:01 Alanine Aminotransferase (ALT) 10 U/L (7-40) Alkaline Phosphatase 46 U/L (46-116) Aspartate Amino Transferase (AST) 18 U/L (13-40) Total Bilirubin 1.0 mg/dL (0.2-1.0) Urinalysis Test 03/29/25 18:31 Urine Color Light-yellow (Yellow) Urine Clarity Clear (Clear) Urine pH 6.0 (5.0-9.0) Urine Specific [place] 1.006 (1.001-1.035) Urine Protein Negative (Negative) Urine Ketones Trace (Negative) Urine Blood Negative /uL (Negative) Urine Nitrite Negative (Negative) Urine Bilirubin Negative (Negative) Urine Urobilinogen Normal mg/dL (Negative) Urine Leukocyte Esterase Negative /uL (Negative) Urine RBC None seen /hpf (0 - 4) Urine Microscopic WBC 2 /HPF (0-5) Urine Squamous Epithelial Cells Few /hpf (<5) Urine Bacteria Few /hpf (None Seen) H Urine Glucose Normal mg/dL (Normal) Urine Test Negative (Negative) Labs and/or images reviewed: Labs reviewed by me, Image(s) reviewed by me Assessment/Plan Assessment/Plan 25-year-old female presents to emergency department for three day history of left-sided chest pain radiating to her left shoulder. Pain is constant but worse with movement of the upper body and bending. Denies any other associated symptoms. 03/30: Patient is seen at bedside, doing well, anorexic BMI 16 ,. Patient was not seen by palm today as order was entered incorrectly. We will fix order for Dr. Regan. Otherwise continue chest tube. Pain control. 03/31: Patient is seen by Dr. Regan today, patient will be tried on clamp trial we will repeat chest x-ray and turned back of suctioned on. We will repeat x- ray tomorrow a.m. Dr. Regan we will continue following. 04/01: Yesterday clamp trial lead to worsening of pneumothorax apical. Suction was put on but on intermittent low, so pneumothorax is in x-ray with interval resolution but still present. Pulmonology follows up this morning and places her on continuous. Pulmonology plan is on CT chest tomorrow with Heimlich trial, family updated. Mother is concerned above the episode of? Seizing spasming, we will get Neurology eval. 04/02: CT chest today with clamp. Pulmonology to follow up. Continue oxygen nasal cannula,. Neurology to eval for that 1 episode of? Seizure 04/03: MRI brain today, EEG also ordered. We will follow up with Neurology and palm on plan of care. Yesterday CTA chest with clamp on chest tube showed trace apical pneumothorax. Diagnosis: Left apical pneumothorax spontaneous Severe protein calorie malnutrition Anorexia Neutrophilia Hyperbilirubinemia Plan: PULM consult - maintain chest tube, defer chest tube management per [facility]. Pain control PRN and analgesia Antiemetic prn Diet resume Maintenance IV fluids Neurology consult Ancef Lovenox Med surge Full code Plan discussed with: Patient My Orders Orders - OSEAS ALEJO MD Procedure Category Date Status Time Chest Without Contrast CT 04/02/25 Resulted 12:05 Date of Service: Apr 03, 2025 Billing Provider: OSEAS ALEJO MD Common Visit Codes: [id number] INP/OBS CARE(HIGH) OSEAS ALEJO MD Apr 03, 2025 08:56
--- NOTE | 2025-04-03 09:37 | DVH ---
EXAMINATION: MRI BRAIN HEAD WO CONTRAST INDICATION: Sz COMPARISON: None TECHNIQUE: Multiplanar, multisequence magnetic resonance imaging of the brain was performed without the use of i ntravenous contrast. FINDINGS: No evidence of acute or remote infarct. No intracranial hemorrhage. No mass effect. There is periventricular/deep white matter T2/FLAIR hyperintensity is nonspecific, but most commonly associated with chronic microvascular disease. The ventricles and sulci are normal in size for age. Clear basal cisterns. Flow voids in the major intracranial vessels are maintained. No abnormality of the orbits. Paranasal sinuses and mastoid air cells are clear. No abnormality of the visualized osseous structures and extracranial soft tissues. IMPRESSION: No acute infarct, intracranial hemorrhage, mass effect, or hydrocephalus.
--- NOTE | 2025-04-03 11:52 | ECG ---
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
--- NOTE | 2025-04-03 19:37 | DVH ---
EXAM: XY CHEST PORTABLE CLINICAL HISTORY: interval ptx eval TECHNIQUE: Single AP view of the chest WID: COMPARISON: CT CHEST WITHOUT CONTRAST on DOS: 04/02/25, XY CHEST XRAY 1 VIEW on DOS: 04/01/25, XY CHEST X RAY 1 VIEW on DOS: 03/31/25 FINDINGS: Lines and tubes: There is an anterior approach thoracostomy tube with the tip projecting over the lef t lung apex. Chest: The heart size and pulmonary vasculature is within normal limits. Miniscule left apical pneumothorax. The lungs are clear. No pleural effusion. The osseous structures are grossly intact. IMPRESSION: 1. Miniscule left apical pneumothorax with an anterior approach pleural drain in place.
--- NOTE | 2025-04-03 19:53 | DVHINCON2 ---
Date of Service if different f: Apr 03, 2025 Consultation ([place]) Labs Laboratory Tests Test 03/29/25 16:30 03/29/25 17:23 03/29/25 18:31 04/01/25 08:00 D-Dimer, Quantitative < 0.19 mg/L FEU (0.0-0.49) Troponin I High Sensitivity < 3 ng/L (</=34) Urine Color Light-yellow (Yellow) Urine Clarity Clear (Clear) Urine pH 6.0 (5.0-9.0) Urine Specific [place] 1.006 (1.001-1.035) Urine Protein Negative (Negative) Urine Ketones Trace (Negative) Urine Blood Negative /uL (Negative) Urine Nitrite Negative (Negative) Urine Bilirubin Negative (Negative) Urine Urobilinogen Normal mg/dL (Negative) Urine Leukocyte Esterase Negative /uL (Negative) Urine RBC None seen /hpf (0 - 4) Urine Microscopic WBC 2 /HPF (0-5) Urine Squamous Epithelial Cells Few /hpf (<5) Urine Bacteria Few /hpf (None Seen) Urine Glucose Normal mg/dL (Normal) Urine Test Negative (Negative) White Blood Count 6.0 10^3/uL (4.4-10.8) Red Blood Count 4.14 10^6/uL (4.0-5.20) Hemoglobin 13.2 g/dL (12.2-16.2) Hematocrit 38.3 % (36.0-46.0) Mean Corpuscular Volume 92.4 fL (80.0-100.0) Mean Corpuscular Hemoglobin 31.9 pg (28.0-32.0) Mean Corpuscular Hemoglobin Concent 34.5 g/dL (32.0-36.0) Red Cell Distribution Width 12.6 % (11.8-14.3) Platelet Count 179 10^3/uL (140-450) Mean Platelet Volume 8.5 fL (6.9-10.8) Neutrophils (%) (Auto) 60.2 % (37.0-80.0) Lymphocytes (%) (Auto) 27.9 % (10.0-50.0) Monocytes (%) (Auto) 10.0 % (0.0-12.0) Eosinophils (%) (Auto) 1.3 % (0.0-7.0) Basophils (%) (Auto) 0.6 % (0.0-2.0) Neutrophils # (Auto) 3.6 10 ^3/uL (1.6-8.6) Lymphocytes # (Auto) 1.7 10 ^3/uL (0.4-5.4) Monocytes # (Auto) 0.6 10 ^3/uL (0-1.3) Eosinophils # (Auto) 0.1 10 ^3/uL (0-0.8) Basophils # (Auto) 0 10 ^3/uL (0-0.2) Nucleated Red Blood Cells 0.3 % Test 04/03/25 07:01 Sodium Level 143 mmol/L (136-145) Potassium Level 3.6 mmol/L (3.5-5.1) Chloride Level 106 mmol/L (98-107) Carbon Dioxide Level 29 mmol/L (20-31) Anion Gap 8 (5-15) Blood Urea Nitrogen 6 mg/dL (9-23) Creatinine 0.75 mg/dL (0.550-1.02) Glomerular Filtration Rate Calc 115 mL/min (>90) BUN/Creatinine Ratio 8.0 (10.0-20.0) Serum Glucose 98 mg/dL (74-106) Calcium Level 9.0 mg/dL (8.7-10.4) Total Bilirubin 1.0 mg/dL (0.2-1.0) Aspartate Amino Transf (AST/SGOT) 18 U/L (13-40) Alanine Aminotransferase (ALT/SGPT) 10 U/L (7-40) Alkaline Phosphatase 46 U/L (46-116) Total Protein 6.3 g/dL (5.7-8.2) Albumin 4.0 g/dL (3.2-4.8) Appetite: Fair Appearance: Stated age, Disheveled Psychomotor activity: WNL Behavioral: Cooperative Eye contact: Limited Affect: Mood Congruent Mood: Depressed, Anxious Thought content: WNL Suicidal ideations: Absent Homicidal ideations: Absent Orientation: Person, Place, Time, Situation Memory intact: Recent Intellect: Average Abstractability: WNL Concentration: Adequate Attention: Adequate Judgement: WNL Insight: Fair Vitals Vital Signs Date Time Temp Pulse Resp B/P (MAP) Pulse Ox O2 Delivery O2 Flow Rate FiO2 04/03/25 17:00 98.2 77 17 95/51 (66) 100 98.2 04/03/25 08:00 Nasal Cannula* 3 32 Current medications Current Medications Medications Dose Ordered Sig/Antoni Route Start Time Stop Time Status Last Admin Dose Admin Sodium Chloride 10 ml Q8HR IV 03/29/25 22:00 04/03/25 14:29 10 ML Docusate Sodium 100 mg BIDPRN PRN PO 03/29/25 19:45 04/02/25 15:12 100 MG Acetaminophen 650 mg Q6HP PRN PO 03/29/25 19:45 Hydromorphone HCl 0.5 mg Q4HP PRN IV 03/29/25 19:45 Hold 03/30/25 03:25 0.5 MG Ondansetron HCl 4 mg Q4HP PRN IV 03/29/25 19:45 04/03/25 17:04 4 MG Enoxaparin Sodium 40 mg DAILY SC 03/30/25 10:00 04/03/25 09:43 40 MG Cefazolin Sodium 50 ml @ 100 mls/hr Q8H IV 03/29/25 19:45 04/03/25 09:43 100 MLS/HR Morphine Sulfate 1 mg Q4HP PRN IV 03/30/25 16:15 04/01/25 20:04 1 MG Acetaminophen/ Hydrocodone Bitart 1 tab Q4HP PRN PO 03/30/25 16:15 04/03/25 16:42 1 TAB Enteral Nutritional Formula 240 ml BIDWM PO 04/01/25 18:00 04/03/25 18:05 240 ML Lorazepam 1 mg ONCE PRN IV 04/02/25 21:15 Lorazepam 0.5 mg Q8HP PRN PO 04/02/25 21:15 Medication adjusted: Yes Diagnosis: anxiety with panic Plan : This is a 25-year-old with hx of depressive mood and anxiety with panic Recommend to start sertraline 25mg po daily to manage symptoms She presently denies suicidal/homicidal ideation She does not meet LPs hold criteria at this time and may discharge home after medical clearance potential side effects including black box warning discussed. Please provide available outpatient resources on discharge History of Present Illness Reason for Consult History of anxiety HPI : This is a 25-year-old female presented here for pneumothorax and chest pain Patient is evaluated via telepsychiatry. She reports anxiety symptoms with panic. panic symptoms are usually random but can be triggered when stressed about a particular thing such as an exam. She reports symptoms of intense anxiety, shaking, sweating palms, blacking out, feeling a sense of doom. She also reports depressed mood, often crying spells, thoughts of hopelessness, poor sleep and appetite. She also was self-harming in high school via cutting but also stopped in high school She denies suicidal/homicidal ideation. She also denies history of jeimy or psychosis. She denies auditory/visual hallucinations or paranoid thoughts. Past Psychiatric History : She denies prior formal diagnoses. she did attend therapy 2 weeks in high school. She stopped after not liking her therapist. She denies any medication trials because mom did not want her to use meds. She is now open to medication use. She denies prior psych admissions, 5150holds, or suicide attempts. She currently does not have outpatient mental health follow up Past Medical History : She denies other medical history Social History : She lives with sister, renting a house. 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 She denies any drugs or alcohol use. She denies any known family history. JODY VALENTINE DNP Apr 03, 2025 19:53
--- NOTE | 2025-04-03 20:39 | DVHPN2 ---
Progress Note - Dictate Date Seen: Apr 03, 2025 Medical Necessity Reason Pt with a Central, PICC or Fol: No Subjective Patient seen and examined at bedside. Remains on supplemental oxygen Overnight events reviewed. vital signs Vital Sign Date Time Temp Pulse Resp B/P (MAP) Pulse Ox O2 Delivery O2 Flow Rate FiO2 04/03/25 20:00 61 18 100 Nasal Cannula* 3 32 04/03/25 17:00 98.2 95/51 (66) 98.2 Total Intake and Output 04/02/25 04/02/25 04/03/25 15:00 23:00 07:00 Intake Total 360 ml 910 ml 1850 ml Output Total 0 ml 4 ml Balance 360 ml 910 ml 1846 ml medications Current Medications Medications Dose Ordered Sig/Antoni Route Start Time Stop Time Status Last Admin Dose Admin Sodium Chloride 10 ml Q8HR IV 03/29/25 22:00 04/03/25 14:29 10 ML Docusate Sodium 100 mg BIDPRN PRN PO 03/29/25 19:45 04/02/25 15:12 100 MG Acetaminophen 650 mg Q6HP PRN PO 03/29/25 19:45 Hydromorphone HCl 0.5 mg Q4HP PRN IV 03/29/25 19:45 Hold 03/30/25 03:25 0.5 MG Ondansetron HCl 4 mg Q4HP PRN IV 03/29/25 19:45 04/03/25 17:04 4 MG Enoxaparin Sodium 40 mg DAILY SC 03/30/25 10:00 04/03/25 09:43 40 MG Cefazolin Sodium 50 ml @ 100 mls/hr Q8H IV 03/29/25 19:45 04/03/25 09:43 100 MLS/HR Morphine Sulfate 1 mg Q4HP PRN IV 03/30/25 16:15 04/01/25 20:04 1 MG Acetaminophen/ Hydrocodone Bitart 1 tab Q4HP PRN PO 03/30/25 16:15 04/03/25 16:42 1 TAB Enteral Nutritional Formula 240 ml BIDWM PO 04/01/25 18:00 04/03/25 18:05 240 ML Lorazepam 1 mg ONCE PRN IV 04/02/25 21:15 Lorazepam 0.5 mg Q8HP PRN PO 04/02/25 21:15 objective Gen.: Patient lying in bed in no apparent distress. On supplemental oxygen. Head: Normocephalic, atraumatic. Eyes: EOMI/PERRLA. Ears: Normal hearing. Normal anatomy. Neck/trachea: Trachea midline, supple. Nose: Normal external anatomy. Mouth: Moist mucous membranes. Chest: Decreased air entry bilaterally. No wheezing or rhonchi. Cardiovascular: Positive S1, positive S2. Regular rate and rhythm. Abdomen: Positive bowel sounds in all 4 quadrants. Soft, non-tender, non- distended. : Deferred. Rectal: Deferred. Skin: Warm, dry. Intact. Extremities: 2+ radial pulses bilaterally. No lower extremity edema. Neuro: Awake, alert, oriented x3. No gross motor or sensory deficits. Cranial nerves II through XII intact. Gait not assessed. laboratory and microbiology Laboratory Tests 04/03/25 07:01 04/01/25 08:00 Test 04/03/25 07:01 Range/Units Serum Glucose 98 74-106 mg/dL Assessment/Plan Impression: Left Pneumothorax Acute hypoxic respiratory failure Dependence on supplemental oxygen Vaping use Cannabinoid use Events: Remains on supplemental oxygen as needed to keep O2 saturation above 92% Recommend to obtain CXR in the morning. If no pneumothorax on chest x-ray, recommend to place to Heimlich valve. Repeat CXR 4 hours after placement of Heimlich valve If no return of pneumothorax, can consider removal of chest tube. Complete antibiotic course Incentive spirometry Chest tube in place - continue low wall suction No subcutaneous emphysema Minimal drainage of serous fluid. (Note, chest x-ray after taking off suction showed re-development of pneumothorax) Continue to low wall suction via UreSil. CT chest on 04/02/25 revealed trace left apical pneumothorax with left thora vent in satisfactory position. Chest x-ray this morning again demonstrated left apical pneumothorax. Given such findings, we will continue low wall suction to allow pneumothorax to heal. Pain control Avoid oversedation Lovenox for DVT ppx. Labs and imaging reviewed. Rest of plan as noted below. Plan: Supplemental oxygen Titrate to keep O2 sats above 92%. Monitor chest tube output Continue antibiotics Incentive spirometry Pain control Monitor renal function. Monitor electrolytes. Supplement as necessary. Monitor ins and outs. DVT prophylaxis. Prognosis: Poor given patient's multiple co-morbidities. Rest of plan per hospitalist and other consultants. Thank you, Dr. Mcmullen, for allowing me to participate in this patient's care. Further recommendations will depend on the patient's clinical course. Please do not hesitate to contact me if you have any questions or concerns. This medical document was created using an electronic medical record system with [employer] dictation system. Although these documentations are being carefully reviewed, there may still be some phonetic and typographical changes. The errors are purely typographical, due to imperfection on the software program, and do not reflect any compromise in the patient's medical care. Dietary Evaluation Review Comments: Nutrition Recommendation 1) Ensure Enlive 240ml TID 2) Monitor PO intake, lab values, weight trend, and I/O Expected Outcomes/Goals: To meet >75% estimated needs Fu 3-5 days Plan discussed with: Patient, Other (ADE Mueller) ENEDINA BELL MD Apr 03, 2025 20:39
[2025-04-03] MEDS: ACETAMINOPHEN 325 MG TAB PO PRN (23:05)
--- NOTE | 2025-04-03 23:38 | DVHPN2 ---
Progress Note - Dictate Date Seen: Apr 03, 2025 Medical Necessity Reason Pt with a Central, PICC or Fol: No Subjective Ms. Dougherty is a 25 years old right-handed female otherwise healthy, she came to the [facility] on 03/29/2025 with a chief complaint of left chest pain radiating to the left shoulder, in the hospital, the patient was found to have left pneumothorax and she status post she is status post chest tube, but she also has other complaint in the hospital I have seen and examined the patient, talked to her nurse, she is doing fine, alert and fully oriented, no more episodic paresthesia Tele psych input appreciated, the patient's consider have anxiety and sertraline 25 mg daily was recommended UDS, 03/29/2025: Unremarkable CBC, 04/01/2025: Unremarkable TBI/AST/ALT/AP, 03/30/2025: 2.3/15/14/6. 03/31/2025: 2.4///52. 04/02/2025: 1.4/15/04/47 Chest x-ray, 03/29/2025 16:15: 1. Left apical pneumothorax measures 2.9 cm. 2. Reactive airways disease. Chest x-ray, 03/29/252023:Left upper hemithoracic pleural catheter placement. No interval change. Trace residual likely apical pneumothorax. Overall no significant interval change MRI head, 04/03/2025: No acute infarct, intracranial hemorrhage, mass effect, or hydrocephalus. vital signs Vital Sign Date Time Temp Pulse Resp B/P (MAP) Pulse Ox O2 Delivery O2 Flow Rate FiO2 04/03/25 21:00 98.2 78 17 110/63 (79) 100 98.2 04/03/25 20:00 Nasal Cannula* 3 32 Total Intake and Output 04/02/25 04/02/25 04/03/25 15:00 23:00 07:00 Intake Total 360 ml 910 ml 1850 ml Output Total 0 ml 4 ml Balance 360 ml 910 ml 1846 ml medications Current Medications Medications Dose Ordered Sig/Antoni Route Start Time Stop Time Status Last Admin Dose Admin Sodium Chloride 10 ml Q8HR IV 03/29/25 22:00 04/03/25 21:05 10 ML Docusate Sodium 100 mg BIDPRN PRN PO 03/29/25 19:45 04/03/25 20:57 100 MG Acetaminophen 650 mg Q6HP PRN PO 03/29/25 19:45 04/03/25 23:05 650 MG Hydromorphone HCl 0.5 mg Q4HP PRN IV 03/29/25 19:45 Hold 03/30/25 03:25 0.5 MG Ondansetron HCl 4 mg Q4HP PRN IV 03/29/25 19:45 04/03/25 21:04 4 MG Enoxaparin Sodium 40 mg DAILY SC 03/30/25 10:00 04/03/25 09:43 40 MG Cefazolin Sodium 50 ml @ 100 mls/hr Q8H IV 03/29/25 19:45 04/03/25 20:57 100 MLS/HR Morphine Sulfate 1 mg Q4HP PRN IV 03/30/25 16:15 04/01/25 20:04 1 MG Acetaminophen/ Hydrocodone Bitart 1 tab Q4HP PRN PO 03/30/25 16:15 04/03/25 20:58 1 TAB Enteral Nutritional Formula 240 ml BIDWM PO 04/01/25 18:00 04/03/25 18:05 240 ML Lorazepam 1 mg ONCE PRN IV 04/02/25 21:15 Lorazepam 0.5 mg Q8HP PRN PO 04/02/25 21:15 objective General: the patient is well developed and nourished. No acute distress. MENTAL STATUS: Subjective SPEECH, LANGUAGE, HIGHER CORTICAL FUNCTION: no aphasia or dysathria. CRANIAL NERVES: Pupils are equal, round and reactive. EOMs full and conjugate. No nystagmus. Facial sensation intact in all three divisions bilaterally. Mandibular strength intact. Facial muscles symmetrical and strength intact. Tongue midline. No fasciculations or atrophy. SENSATION: Sensation to touch and pinprick is normal. MOTOR: Normal tone in the upper and lower extremity. Normal muscle bulk. No fasciculations. No abnormal movements or posturing. Muscle strength of the major groups in the extremities is 5/5. REFLEXES: Deep tendon reflexes normal and symmetrical. No pathological reflexes. CEREBELLAR/COORDINATION: Finger to nose and heel to moore are normal bilaterally. GAIT/STATION: deferred laboratory and microbiology Laboratory Tests 04/03/25 07:01 04/01/25 08:00 Test 04/03/25 07:01 Range/Units Serum Glucose 98 74-106 mg/dL Problem List Episodic event on 04/30/2025 ? Rule out partial seizure, less likely Anxiety related Anxiety Pneumothorax status post chest tube Assessment/Plan Monitoring Supportive treatment Telemetry EEG Sertraline 25 mg daily Ativan for anxiety Pain Management Tele psych evaluation This medical document was created using an electronic medical record system with [employer] dictation system. Although this document has been carefully reviewed, there may still be some phonetic and typographical errors. These areas are purely typographical due to imperfections of the software programs, and do not reflect any compromise in the patient's medical care Prognosis poor Dietary Evaluation Review Comments: Nutrition Recommendation 1) Ensure Enlive 240ml TID 2) Monitor PO intake, lab values, weight trend, and I/O Expected Outcomes/Goals: To meet >75% estimated needs Fu 3-5 days Plan discussed with: Patient, Other JOHN KAT MD Apr 03, 2025 23:38
[2025-04-04] VITALS (7 sets, daily range): BP systolic 96–115; BP diastolic 54–69; PULSE 51–59; RESP 16–18; TEMP 97.1–98.6; O2SAT 100
--- NOTE | 2025-04-04 06:14 | DVH ---
CHEST RADIOGRAPH Indication: Pneumothorax Technique: Single frontal view of the chest was obtained COMPARISON: XY CHEST PORTABLE on DOS: 04/03/25, CT CHEST WITHOUT CONTRAST on DOS: 04/02/25, XY CHEST XRAY 1 VIEW on DOS: 04/01/25, XY CHEST XRAY 1 VIEW on DOS: 03/31/25, XY CHEST PORTABLE on DOS: 03/30/25 FINDINGS: Lines and Tubes: Stable position left apically directed Thora vent. Lungs: Clear Pleura: No effusion. No pneumothorax. Cardiomediastinal contours: Unremarkable Bones: Unremarkable IMPRESSION: 1. Stable position left thoracostomy tube. 2. No pneumothorax.
[2025-04-04] MEDS: SERTRALINE HCL 50 MG TAB PO ONE ×2 (06:35→22:31)
--- NOTE | 2025-04-04 13:46 | DVHPN2 ---
Subjective Patient is seen at bedside today,. Doing well, needs pain control. Reviewed: Care Plan Changes from previous H/P or p: No Changes General: Per HPI Objective Vitals Vital Signs Date Time Temp Pulse Resp B/P (MAP) Pulse Ox O2 Delivery O2 Flow Rate FiO2 04/04/25 12:59 59 115/69 (84) 04/04/25 08:46 97.2 16 100 97.2 04/04/25 08:00 Nasal Cannula* 3 32 Intake/Output Intake and Output 04/04/25 07:00 Intake Total 2248 ml Balance 2248 ml Intake Oral 2098 ml IV Total 150 ml # Voids 5 Exam GEN: Healthy appearing, well-developed, NAD. HEENT: NC/AT; MMM. CV: RRR, no m/r/g. LUNGS: CTAB, no w/r/c. Chest tube anterior chest wall, lateral clavicular line on left side, good breath sounds in all adames. Chest tube was connected to the suction. ABD: Soft, NT/ND, NBS, no masses or organomegaly. EXT: skin Warm, well perfused. no rashes. No clubbing, cyanosis, or edema. NEURO: Ambulating with no limitations. No focal deficits. Medications Current Medications Medications Dose Ordered Sig/Antoni Route Start Time Stop Time Status Last Admin Dose Admin Sodium Chloride 10 ml Q8HR IV 03/29/25 22:00 04/04/25 13:42 10 ML Docusate Sodium 100 mg BIDPRN PRN PO 03/29/25 19:45 04/03/25 20:57 100 MG Acetaminophen 650 mg Q6HP PRN PO 03/29/25 19:45 04/03/25 23:05 650 MG Hydromorphone HCl 0.5 mg Q4HP PRN IV 03/29/25 19:45 Hold 03/30/25 03:25 0.5 MG Ondansetron HCl 4 mg Q4HP PRN IV 03/29/25 19:45 04/04/25 12:43 4 MG Enoxaparin Sodium 40 mg DAILY SC 03/30/25 10:00 04/03/25 09:43 40 MG Morphine Sulfate 1 mg Q4HP PRN IV 03/30/25 16:15 04/01/25 20:04 1 MG Acetaminophen/ Hydrocodone Bitart 1 tab Q4HP PRN PO 03/30/25 16:15 04/04/25 12:43 1 TAB Enteral Nutritional Formula 240 ml BIDWM PO 04/01/25 18:00 04/04/25 08:00 240 ML Lorazepam 1 mg ONCE PRN IV 04/02/25 21:15 Lorazepam 0.5 mg Q8HP PRN PO 04/02/25 21:15 Sertraline HCl 25 mg DAILY PO 04/05/25 10:00 Lactulose 15 ml BID PO 04/04/25 22:00 UNV Docusate Sodium 100 mg BID PO 04/04/25 22:00 UNV Laboratory Results Laboratory Tests 04/01/25 08:00 04/03/25 07:01 Urinalysis Test 03/29/25 18:31 Urine Color Light-yellow (Yellow) Urine Clarity Clear (Clear) Urine pH 6.0 (5.0-9.0) Urine Specific [place] 1.006 (1.001-1.035) Urine Protein Negative (Negative) Urine Ketones Trace (Negative) Urine Blood Negative /uL (Negative) Urine Nitrite Negative (Negative) Urine Bilirubin Negative (Negative) Urine Urobilinogen Normal mg/dL (Negative) Urine Leukocyte Esterase Negative /uL (Negative) Urine RBC None seen /hpf (0 - 4) Urine Microscopic WBC 2 /HPF (0-5) Urine Squamous Epithelial Cells Few /hpf (<5) Urine Bacteria Few /hpf (None Seen) H Urine Glucose Normal mg/dL (Normal) Urine Test Negative (Negative) Labs and/or images reviewed: Labs reviewed by me, Image(s) reviewed by me Assessment/Plan Assessment/Plan 25-year-old female presents to emergency department for three day history of left-sided chest pain radiating to her left shoulder. Pain is constant but worse with movement of the upper body and bending. Denies any other associated symptoms. 03/30: Patient is seen at bedside, doing well, anorexic BMI 16 ,. Patient was not seen by [facility] today as order was entered incorrectly. We will fix order for Dr. Regan. Otherwise continue chest tube. Pain control. 03/31: Patient is seen by Dr. Regan today, patient will be tried on clamp trial we will repeat chest x-ray and turned back of suctioned on. We will repeat x- ray tomorrow a.m. Dr. Regan we will continue following. 04/01: Yesterday clamp trial lead to worsening of pneumothorax apical. Suction was put on but on intermittent low, so pneumothorax is in x-ray with interval resolution but still present. Pulmonology follows up this morning and places her on continuous. Pulmonology plan is on CT chest tomorrow with Heimlich trial, family updated. Mother is concerned above the episode of? Seizing spasming, we will get Neurology eval. 04/02: CT chest today with clamp. Pulmonology to follow up. Continue oxygen nasal cannula,. Neurology to eval for that 1 episode of? Seizure 04/03: MRI brain today, EEG also ordered. We will follow up with Neurology and palm on plan of care. Yesterday CTA chest with clamp on chest tube showed trace apical pneumothorax. 04/04: Neurology believes that the episode of spasming was likely anxiety? , starting sertraline [address] Shore and we will be following patient now. Today we will do clamp trial and repeat x-ray. Diagnosis: Left apical pneumothorax spontaneous Severe protein calorie malnutrition Anorexia Neutrophilia Hyperbilirubinemia Plan: PULM consult - maintain chest tube, defer chest tube management per palm. Pain control PRN and analgesia Antiemetic prn Diet resume Maintenance IV fluids Neurology consult Ancef Lovenox Med surge Full code Plan discussed with: Patient My Orders Orders - OSEAS ALEJO MD Procedure Category Date Status Time Chest Portable XY 04/03/25 Resulted 17:42 Lactulose Oral PHA 04/04/25 Logged 13:45 Lactulose Oral PHA 04/04/25 Logged 22:00 Docusate Sodium PHA 04/04/25 Logged Capsule (Colace 22:00 Date of Service: Apr 04, 2025 Billing Provider: OSEAS ALEJO MD Common Visit Codes: [id number] INP/OBS CARE(HIGH) OSEAS ALEJO MD Apr 04, 2025 13:46
[2025-04-04] MEDS: LACTULOSE 20Gm/30ML SOLN PO ONE (14:55)
--- NOTE | 2025-04-04 19:14 | DVH ---
CHEST RADIOGRAPH Indication: clamp trial. 4hr interval cxr Technique: Single frontal view of the chest was obtained Comparison: XY CHEST PORTABLE on DOS: 04/04/25, XY CHEST PORTABLE on DOS: 04/03/25, CT CHEST WITHOUT CONT RAST on DOS: 04/02/25 FINDINGS: Lines and Tubes: Interval removal of the thoracostomy tube in the left apex. Lungs: No focal consolidation. Pleura: No effusion. No pneumothorax. Cardiomediastinal contours: Unremarkable Bones: No acute osseous abnormality. IMPRESSION: 1. Interval removal of the thora vent tube. 2. Questionable trace residual pneumothorax in the left apex measuring 5 mm.
--- NOTE | 2025-04-04 19:45 | DVHPN2 ---
Progress Note - Dictate Date Seen: Apr 04, 2025 Medical Necessity Reason Pt with a Central, PICC or Fol: No vital signs Vital Sign Date Time Temp Pulse Resp B/P (MAP) Pulse Ox O2 Delivery O2 Flow Rate FiO2 04/04/25 17:00 97.1 54 17 101/55 (70) 100 97.1 04/04/25 08:00 Nasal Cannula* 3 32 Total Intake and Output 04/03/25 04/03/25 04/04/25 15:00 23:00 07:00 Intake Total 50 ml 1250 ml 948 ml Balance 50 ml 1250 ml 948 ml medications Current Medications Medications Dose Ordered Sig/Antoni Route Start Time Stop Time Status Last Admin Dose Admin Sodium Chloride 10 ml Q8HR IV 03/29/25 22:00 04/04/25 13:42 10 ML Acetaminophen 650 mg Q6HP PRN PO 03/29/25 19:45 04/03/25 23:05 650 MG Hydromorphone HCl 0.5 mg Q4HP PRN IV 03/29/25 19:45 Hold 03/30/25 03:25 0.5 MG Ondansetron HCl 4 mg Q4HP PRN IV 03/29/25 19:45 04/04/25 12:43 4 MG Enoxaparin Sodium 40 mg DAILY SC 03/30/25 10:00 04/03/25 09:43 40 MG Morphine Sulfate 1 mg Q4HP PRN IV 03/30/25 16:15 04/01/25 20:04 1 MG Acetaminophen/ Hydrocodone Bitart 1 tab Q4HP PRN PO 03/30/25 16:15 04/04/25 12:43 1 TAB Enteral Nutritional Formula 240 ml BIDWM PO 04/01/25 18:00 04/04/25 17:20 240 ML Lorazepam 1 mg ONCE PRN IV 04/02/25 21:15 Lorazepam 0.5 mg Q8HP PRN PO 04/02/25 21:15 Sertraline HCl 25 mg DAILY PO 04/05/25 10:00 Lactulose 15 ml BID PO 04/04/25 22:00 Docusate Sodium 100 mg BID PO 04/04/25 22:00 laboratory and microbiology Laboratory Tests 04/03/25 07:01 04/01/25 08:00 Test 04/03/25 07:01 Range/Units Serum Glucose 98 74-106 mg/dL Assessment/Plan Impression Acute hypoxemic respiratory failure Spontaneous left pneumothorax Cannabinoid use Atelectasis Patient seen and examined Events Low oxygen requirements On 2 liters nasal cannula No distress Chest x-ray shows re-expansion of the left lung Small pleural catheter removed by myself Patient tolerated procedure well Management Supplemental oxygen Titrate to maintain sats 90% or above Incentive spirometry Bronchodilators as needed Monitor renal function Monitor electrolytes Supplement as needed Pain control Avoid oversedation DVT prophylaxis Dietary Evaluation Review Comments: Nutrition Recommendation 1) Ensure Enlive 240ml TID 2) Monitor PO intake, lab values, weight trend, and I/O Expected Outcomes/Goals: To meet >75% estimated needs Fu 3-5 days Plan discussed with: Patient JORDAN HERNANDEZ MD Apr 04, 2025 19:45
[2025-04-04] MEDS: LACTULOSE 20Gm/30ML SOLN PO SCH (21:27)
[2025-04-04] MEDS: DOCUSATE SOD 100 MG CAP PO SCH (21:27)
--- NOTE | 2025-04-04 21:56 | DVHPN2 ---
Progress Note - Dictate Date Seen: Apr 04, 2025 Medical Necessity Reason Pt with a Central, PICC or Fol: No Subjective Ms. Dougherty is a 25 years old right-handed female otherwise healthy, she came to the [facility] on 03/29/2025 with a chief complaint of left chest pain radiating to the left shoulder, in the hospital, the patient was found to have left pneumothorax and she status post she is status post chest tube, but she also has other complaint in the hospital I have seen and examined the patient, talked to her nurse, she is doing fine, alert and fully oriented, no more episodic paresthesia She is doing much better today, fully oriented, happy, her change with has been clamped and pulled out UDS, 03/29/2025: Unremarkable CBC, 04/01/2025: Unremarkable TBI/AST/ALT/AP, 03/30/2025: 2.3/15/14/6. 03/31/2025: 2.4///52. 04/02/2025: 1.4/15/04/47 Chest x-ray, 03/29/2025 16:15: 1. Left apical pneumothorax measures 2.9 cm. 2. Reactive airways disease. Chest x-ray, 03/29/252023:Left upper hemithoracic pleural catheter placement. No interval change. Trace residual likely apical pneumothorax. Overall no significant interval change MRI head, 04/03/2025: No acute infarct, intracranial hemorrhage, mass effect, or hydrocephalus. vital signs Vital Sign Date Time Temp Pulse Resp B/P (MAP) Pulse Ox O2 Delivery O2 Flow Rate FiO2 04/04/25 17:00 97.1 54 17 101/55 (70) 100 97.1 04/04/25 08:00 Nasal Cannula* 3 32 Total Intake and Output 04/03/25 04/03/25 04/04/25 15:00 23:00 07:00 Intake Total 50 ml 1250 ml 948 ml Balance 50 ml 1250 ml 948 ml medications Current Medications Medications Dose Ordered Sig/Antoni Route Start Time Stop Time Status Last Admin Dose Admin Sodium Chloride 10 ml Q8HR IV 03/29/25 22:00 04/04/25 21:27 10 ML Acetaminophen 650 mg Q6HP PRN PO 03/29/25 19:45 04/03/25 23:05 650 MG Hydromorphone HCl 0.5 mg Q4HP PRN IV 03/29/25 19:45 Hold 03/30/25 03:25 0.5 MG Ondansetron HCl 4 mg Q4HP PRN IV 03/29/25 19:45 04/04/25 12:43 4 MG Enoxaparin Sodium 40 mg DAILY SC 03/30/25 10:00 04/03/25 09:43 40 MG Morphine Sulfate 1 mg Q4HP PRN IV 03/30/25 16:15 04/01/25 20:04 1 MG Acetaminophen/ Hydrocodone Bitart 1 tab Q4HP PRN PO 03/30/25 16:15 04/04/25 12:43 1 TAB Enteral Nutritional Formula 240 ml BIDWM PO 04/01/25 18:00 04/04/25 17:20 240 ML Lorazepam 1 mg ONCE PRN IV 04/02/25 21:15 Lorazepam 0.5 mg Q8HP PRN PO 04/02/25 21:15 Sertraline HCl 25 mg DAILY PO 04/05/25 10:00 Lactulose 15 ml BID PO 04/04/25 22:00 Docusate Sodium 100 mg BID PO 04/04/25 22:00 objective General: the patient is well developed and nourished. No acute distress. MENTAL STATUS: Subjective SPEECH, LANGUAGE, HIGHER CORTICAL FUNCTION: no aphasia or dysathria. CRANIAL NERVES: Pupils are equal, round and reactive. EOMs full and conjugate. No nystagmus. Facial sensation intact in all three divisions bilaterally. Mandibular strength intact. Facial muscles symmetrical and strength intact. Tongue midline. No fasciculations or atrophy. SENSATION: Sensation to touch and pinprick is normal. MOTOR: Normal tone in the upper and lower extremity. Normal muscle bulk. No fasciculations. No abnormal movements or posturing. Muscle strength of the major groups in the extremities is 5/5. REFLEXES: Deep tendon reflexes normal and symmetrical. No pathological reflexes. CEREBELLAR/COORDINATION: Finger to nose and heel to moore are normal bilaterally. GAIT/STATION: deferred laboratory and microbiology Laboratory Tests 04/03/25 07:01 04/01/25 08:00 Test 04/03/25 07:01 Range/Units Serum Glucose 98 74-106 mg/dL Problem List Episodic event on 04/30/2025 ? Rule out partial seizure, less likely Anxiety related Anxiety Pneumothorax Assessment/Plan Monitoring Supportive treatment Telemetry EEG Sertraline 25 mg daily Ativan for anxiety Pain Management This medical document was created using an electronic medical record system with [employer] dictation system. Although this document has been carefully reviewed, there may still be some phonetic and typographical errors. These areas are purely typographical due to imperfections of the software programs, and do not reflect any compromise in the patient's medical care Prognosis poor Dietary Evaluation Review Comments: Nutrition Recommendation 1) Ensure Enlive 240ml TID 2) Monitor PO intake, lab values, weight trend, and I/O Expected Outcomes/Goals: To meet >75% estimated needs Fu 3-5 days Plan discussed with: Other JOHN KAT MD Apr 04, 2025 21:55
[2025-04-05 05:00] VITALS: BP 105/54; PULSE 55; RESP 18; TEMP 97.8; O2SAT 99
--- NOTE | 2025-04-05 05:56 | DVH ---
CHEST RADIOGRAPH Indication: pneumothorax (post chest tube removal) Technique: Single frontal view of the chest was obtained COMPARISON: XY CHEST PORTABLE on DOS: 04/04/25, XY CHEST PORTABLE on DOS: 04/04/25, XY CHEST PORTABLE on DOS: 04/03/25, CT CHEST WITHOUT CONTRAST on DOS: 04/02/25, XY CHEST XRAY 1 VIEW on DOS: 04/01/25 FINDINGS: Lines and Tubes: None Lungs: Clear Pleura: No effusion. No pneumothorax. Cardiomediastinal contours: Unremarkable Bones: Unremarkable IMPRESSION: No definite appreciable left pneumothorax.
[2025-04-05 08:00] VITALS: PULSE 60; RESP 18
[2025-04-05] MEDS: SERTRALINE HCL 50 MG TAB PO SCH (08:47)
[2025-04-05 08:57] VITALS: BP 103/61; PULSE 60; RESP 17; TEMP 98; O2SAT 100
[2025-04-05 13:00] VITALS: BP 104/61; PULSE 63; RESP 17; TEMP 97.8; O2SAT 98
[2025-04-05] MEDS ORDERED: SERT25TA28 PO (13:10)
--- NOTE | 2025-04-05 13:13 | DVHDS2 ---
Discharge Summary Date of Admission Mar 29, 2025 at 19:39 Date of Discharge: Apr 05, 2025 Labs/Diagnostic Data: Laboratory Results Test 04/03/25 07:01 04/01/25 08:00 03/29/25 18:31 03/29/25 17:23 Sodium Level 143 mmol/L (136-145) Potassium Level 3.6 mmol/L (3.5-5.1) Chloride Level 106 mmol/L (98-107) Carbon Dioxide Level 29 mmol/L (20-31) Anion Gap 8 (5-15) Blood Urea Nitrogen 6 mg/dL (9-23) Creatinine 0.75 mg/dL (0.550-1.02) Glomerular Filtration Rate Calc 115 mL/min (>90) BUN/Creatinine Ratio 8.0 (10.0-20.0) Serum Glucose 98 mg/dL (74-106) Calcium Level 9.0 mg/dL (8.7-10.4) Total Bilirubin 1.0 mg/dL (0.2-1.0) Aspartate Amino Transferase (AST) 18 U/L (13-40) Alanine Aminotransferase (ALT) 10 U/L (7-40) Alkaline Phosphatase 46 U/L (46-116) Total Protein 6.3 g/dL (5.7-8.2) Albumin 4.0 g/dL (3.2-4.8) White Blood Count 6.0 10^3/uL (4.4-10.8) Red Blood Count 4.14 10^6/uL (4.0-5.20) Hemoglobin 13.2 g/dL (12.2-16.2) Hematocrit 38.3 % (36.0-46.0) Mean Corpuscular Volume 92.4 fL (80.0-100.0) Mean Corpuscular Hemoglobin 31.9 pg (28.0-32.0) Mean Corpuscular Hemoglobin Concent 34.5 g/dL (32.0-36.0) Red Cell Distribution Width 12.6 % (11.8-14.3) Platelet Count 179 10^3/uL (140-450) Mean Platelet Volume 8.5 fL (6.9-10.8) Neutrophils (%) (Auto) 60.2 % (37.0-80.0) Lymphocytes (%) (Auto) 27.9 % (10.0-50.0) Monocytes (%) (Auto) 10.0 % (0.0-12.0) Eosinophils (%) (Auto) 1.3 % (0.0-7.0) Basophils (%) (Auto) 0.6 % (0.0-2.0) Neutrophils # (Auto) 3.6 10 ^3/uL (1.6-8.6) Lymphocytes # (Auto) 1.7 10 ^3/uL (0.4-5.4) Monocytes # (Auto) 0.6 10 ^3/uL (0-1.3) Eosinophils # (Auto) 0.1 10 ^3/uL (0-0.8) Basophils # (Auto) 0 10 ^3/uL (0-0.2) Nucleated Red Blood Cells 0.3 % Urine Color Light-yellow (Yellow) Urine Clarity Clear (Clear) Urine pH 6.0 (5.0-9.0) Urine Specific [place] 1.006 (1.001-1.035) Urine Protein Negative (Negative) Urine Ketones Trace (Negative) Urine Blood Negative /uL (Negative) Urine Nitrite Negative (Negative) Urine Bilirubin Negative (Negative) Urine Urobilinogen Normal mg/dL (Negative) Urine Leukocyte Esterase Negative /uL (Negative) Urine RBC None seen /hpf (0 - 4) Urine Microscopic WBC 2 /HPF (0-5) Urine Squamous Epithelial Cells Few /hpf (<5) Urine Bacteria Few /hpf (None Seen) Urine Glucose Normal mg/dL (Normal) Urine Test Negative (Negative) Troponin I High Sensitivity < 3 ng/L (</=34) Test 03/29/25 16:30 D-Dimer, Quantitative < 0.19 mg/L FEU (0.0-0.49) Other Laboratory Tests 04/03/25 07:01 04/01/25 08:00 Brief Hx & Hospital Course: 25-year-old female presents to emergency department for three day history of left-sided chest pain radiating to her left shoulder. Pain is constant but worse with movement of the upper body and bending. Denies any other associated symptoms. 03/30: Patient is seen at bedside, doing well, anorexic BMI 16 ,. Patient was not seen by palm today as order was entered incorrectly. We will fix order for Dr. Regan. Otherwise continue chest tube. Pain control. 03/31: Patient is seen by Dr. Regan today, patient will be tried on clamp trial we will repeat chest x-ray and turned back of suctioned on. We will repeat x- ray tomorrow a.m. Dr. Regan we will continue following. 04/01: Yesterday clamp trial lead to worsening of pneumothorax apical. Suction was put on but on intermittent low, so pneumothorax is in x-ray with interval resolution but still present. Pulmonology follows up this morning and places her on continuous. Pulmonology plan is on CT chest tomorrow with Heimlich trial, family updated. Mother is concerned above the episode of? Seizing spasming, we will get Neurology eval. 04/02: CT chest today with clamp. Pulmonology to follow up. Continue oxygen nasal cannula,. Neurology to eval for that 1 episode of? Seizure 04/03: MRI brain today, EEG also ordered. We will follow up with Neurology and pulm on plan of care. Yesterday CTA chest with clamp on chest tube showed trace apical pneumothorax. MRI negative, EEG deferred, 04/04: Neurology believes that the episode of spasming was likely anxiety? , starting sertraline [address] Shore and we will be following patient now. Today we will do clamp trial and repeat x-ray. chest tube was removed 04/05: Repeat x-ray this a.m. no further pneumothorax, stable for discharge Diagnosis: Left apical pneumothorax spontaneous, resolved Seizure-like episode, likely anxiety Severe protein calorie malnutrition Anorexia Neutrophilia Hyperbilirubinemia discharge: - sertraline 25 daily, follow up with PCP - Follow up with PCP to follow up on symptoms and possible repeat CXR - continue other home medications Condition at Discharge: Fair Final Diagnosis/Problems List Left apical pneumothorax spontaneous, resolved Seizure-like episode, likely anxiety Severe protein calorie malnutrition Anorexia Neutrophilia Hyperbilirubinemia Discharge Disposition: Home Discharge Instruct/Medications Diet: Regular Activity: No Restrictions, As Tolerated Follow Up/Referral: See below Medications: See below Scheduled Sertraline Hcl (Sertraline Hcl), 1 TAB PO DAILY Discharge Statement: "Patient was advised to return to the ER or call 911 if any headaches, dizziness, shortness of breath, chest pain, abdominal pain, bleeding, fevers, or worsening of medical condition. Patient was counseled about treatment plan, medications, possible side effects, patientverbalized understanding. All questions were answered to the best of my ability. This discharge took greater then 30 minutes in planning, reviewing documentation, counseling the patient, and discussing with other team members." Date of Service: Apr 05, 2025 Billing Provider: OSEAS ALEJO MD Common Visit Codes: [id number]/[id number] DISCH DAY >30min OSEAS ALEJO MD Apr 05, 2025 13:13
--- NOTE | 2025-04-05 14:22 | DVHPN2 ---
Progress Note - Dictate Date Seen: Apr 05, 2025 Medical Necessity Reason Pt with a Central, PICC or Fol: No vital signs Vital Sign Date Time Temp Pulse Resp B/P (MAP) Pulse Ox O2 Delivery O2 Flow Rate FiO2 04/05/25 08:57 98.0 60 17 103/61 (75) 100 98.0 04/05/25 08:00 Nasal Cannula* 2 28 Total Intake and Output 04/04/25 04/04/25 04/05/25 15:00 23:00 07:00 Intake Total 1200 ml 500 ml Output Total 40 ml Balance -40 ml 1200 ml 500 ml medications Current Medications Medications Dose Ordered Sig/Antoni Route Start Time Stop Time Status Last Admin Dose Admin Sodium Chloride 10 ml Q8HR IV 03/29/25 22:00 04/05/25 13:30 10 ML Acetaminophen 650 mg Q6HP PRN PO 03/29/25 19:45 04/05/25 09:14 650 MG Hydromorphone HCl 0.5 mg Q4HP PRN IV 03/29/25 19:45 Hold 03/30/25 03:25 0.5 MG Ondansetron HCl 4 mg Q4HP PRN IV 03/29/25 19:45 04/04/25 12:43 4 MG Enoxaparin Sodium 40 mg DAILY SC 03/30/25 10:00 04/03/25 09:43 40 MG Morphine Sulfate 1 mg Q4HP PRN IV 03/30/25 16:15 04/01/25 20:04 1 MG Acetaminophen/ Hydrocodone Bitart 1 tab Q4HP PRN PO 03/30/25 16:15 04/04/25 12:43 1 TAB Enteral Nutritional Formula 240 ml BIDWM PO 04/01/25 18:00 04/05/25 08:46 240 ML Lorazepam 1 mg ONCE PRN IV 04/02/25 21:15 Lorazepam 0.5 mg Q8HP PRN PO 04/02/25 21:15 Sertraline HCl 25 mg DAILY PO 04/05/25 10:00 04/05/25 08:47 25 MG Lactulose 15 ml BID PO 04/04/25 22:00 Docusate Sodium 100 mg BID PO 04/04/25 22:00 laboratory and microbiology Laboratory Tests 04/03/25 07:01 04/01/25 08:00 Test 04/03/25 07:01 Range/Units Serum Glucose 98 74-106 mg/dL Assessment/Plan Impression Acute hypoxemic respiratory failure Spontaneous left pneumothorax Cannabinoid use Atelectasis Patient seen and examined Events Low oxygen requirements On 2 liters nasal cannula No acute events Labs and imaging reviewed Chest x-ray shows re-expansion of the left lung S/p pleural catheter removal yesterday Management Supplemental oxygen Titrate to maintain sats 90% or above Incentive spirometry Bronchodilators as needed Monitor renal function Monitor electrolytes Supplement as needed Pain control Avoid oversedation Okay to discharge from pulmonary standpoint DVT prophylaxis Dietary Evaluation Review Comments: Nutrition Recommendation 1) Ensure Enlive 240ml TID 2) Monitor PO intake, lab values, weight trend, and I/O Expected Outcomes/Goals: To meet >75% estimated needs Fu 3-5 days Plan discussed with: Patient JORDAN HERNANDEZ MD Apr 05, 2025 14:22
--- NOTE | 2025-04-08 15:11 | CODING ---
Date of Service: Apr 01, 2025 Billing Provider: ENEDINA BELL MD Common Visit Codes: [id number] INP/OBS CARE(HIGH) ENEDINA BELL MD Apr 08, 2025 15:11
--- NOTE | 2025-04-08 15:12 | CODING ---
Date of Service: Apr 02, 2025 Billing Provider: ENEDINA BELL MD Common Visit Codes: [id number] INP/OBS CARE(HIGH) ENEDINA BELL MD Apr 08, 2025 15:12
--- NOTE | 2025-04-08 15:12 | CODING ---
Date of Service: Apr 03, 2025 Billing Provider: ENEDINA BELL MD Common Visit Codes: [id number] INP/OBS CARE(HIGH) ENEDINA BELL MD Apr 08, 2025 15:12
--- NOTE | 2025-04-09 00:01 | DVHEEG2 ---
Neurology EEG Procedural Note Procedural Note EXAM DATE: 04/04/2025 REFERRING DOCTOR: Dr. Kat TECHNIQUE: Eighteen channels of EEG, 2 channels of EOG, and 1 channel of EKG were recorded using the International 10/20 system. CLINICAL DATA: The patient was referred for an EEG evaluation for the evidence of seizure disorder. MEDICATIONS: See the chart BACKGROUND ACTIVITY: While the patient was awake, the background activity consisted of well regulated 11-12 Hz rhythmic waveforms, symmetrically distributed over both posterior quadrants and was reactive to eye opening. ACTIVATION: Hyperventilation: Not done Photic Stimulation: Not done Sleep: Noticed IMPRESSION: This is a normal EEG. No focal, lateralized, or epileptiform features are noted. If clinically indicated to rule out a seizure disorder, recommend repeat EEG with sleep deprivation. The EKG channel showed a poor signal [place] [address] JOHN KAT MD Apr 09, 2025 00:01
== END 2025-04-05 14:00 | disposition home or self-care (01) | DRG 143 ==
LOC: ER 16:07 → OVERFLOW 19:39 → WEST WING 03-30 22:25 → TELE-WESTW 03-31 16:05 → WEST WING 04-03 10:20
PROVIDERS: ADMIT Student in an Organized Health Care Education/Training Program; ATTEND Student in an Organized Health Care Education/Training Program
PROC: 0W9B30Z Drainage of Left Pleural Cavity with Drainage Device, Percutaneous Approach (ICD-10-PCS; principal; 2025-03-29)
DX: J93.83 Other pneumothorax (principal); E43 Unspecified severe protein-calorie malnutrition; Z99.81 Dependence on supplemental oxygen; Z68.1 Body mass index [BMI] 19.9 or less, adult; R63.0 Anorexia; F41.9 Anxiety disorder, unspecified; E80.6 Other disorders of bilirubin metabolism; J98.11 Atelectasis; F32.A Depression, unspecified; Z80.1 Family history of malignant neoplasm of trachea, bronchus and lung; Z82.49 Family history of ischemic heart disease and other diseases of the circulatory system; Z79.899 Other long term (current) drug therapy; Z87.891 Personal history of nicotine dependence
CPT/HCPCS: 32551; 36415; 70551; 71045; 71046; 71250; 76705; 80053; 81001; 81025; 84484; 85025; 85379; 93005; 95819; 99291; G0378; J2405

== ENCOUNTER 2025-06-17 16:24 | Emergency (ER) | payer MEDICAID ==
[~2025-06-17] VITALS: Ht 165.1 cm; Wt 42.2 kg
[~2025-06-17 16:24] MED LIST: SERT25TA28 PO
[2025-06-17 16:26] VITALS: BP 95/57; RESP 18; TEMP 98.2; O2SAT 100
--- NOTE | 2025-06-17 16:30 | ECG ---
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
--- NOTE | 2025-06-17 16:45 | ED.PDOC ---
HPI Comments 25 year old female presents to the ED with a chief complaint of chest pain onset yesterday around 19:30. Patient states she was at work when she began experiencing chest pain, described as a tightness sensation, radiates to her back, has "air bubbles" sensation, has been intermittent since then, is also experiencing shortness of breath. Patient states she experienced similar symptoms few months ago, was told she had a collapsed lung. Was discharged from [facility] on 04/05/25 with diagnosis of Left apical pneumothorax spontaneous, resolved. Denies fever, chills, nausea, vomiting, diarrhea, headache, dizziness, cough, cold, congestion. No other symptoms or modifying factors present at this time. Chief Complaint: Chest Pain Time Seen by MD: 16:40 Reviewed Notes: Medications, Allergies Allergies: Coded Allergies: NO KNOWN ALLERGIES (Unverified , 03/29/25) Home Meds Active Scripts Sertraline Hcl (Sertraline Hcl) 25 Mg Tab, 1 TAB PO DAILY for 30 Days, #30 TAB 0 Refills Prov:OSEAS ALEJO MD 04/05/25 Information Source: Patient Mode of Arrival: Ambulatory Severity: Moderate Timing: Days Duration: Since onset Prehospital treatment: None Location: Chest (L) Radiation: Back Quality: Tightness Onset: At Rest Cardiac Risk Factors: None PE Risk Factors: None History of: Similar pain in past Modifying Factors: Nothing Associated Signs and Symptoms: SOB Past Medical History PAST MEDICAL HISTORY: Denies Surgical History: Denies all surgeries 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 OPERATOR HELPER History Family History Family History: Reviewed,noncontributory to illness, Unknown Social History Smoker: Non-Smoker Alcohol: Denies ETOH Use Drugs: Denies Drug Use Lives In: Home Constitutional: denies: chills, diaphoresis, fatigue, fever, malaise, sweats, weakness, others EENTM: denies: blurred vision, double vision, ear bleeding, ear discharge, ear drainage, ear pain, ear ringing, eye pain, eye redness, hearing loss, mouth pain, mouth swelling, nasal discharge, nose bleeding, nose congestion, nose pain, photophobia, tearing, throat pain, throat swelling, voice changes, others Respiratory: reports: shortness of breath; denies: cough, hemoptysis, orthopnea, SOB at rest, SOB with excertion, stridor, wheezing, others Cardiovascular: reports: chest pain; denies: dizzy spells, diaphoresis, Dyspnea on exertion, edema, irregular heart beat, left arm pain, lightheadedness, palpitations, PND, syncope, others Gastrointestinal: denies: abdomen distended, abdominal pain, blood streaked bowels, constipated, diarrhea, dysphagia, difficulty swallowing, hematemesis, melena, nausea, poor appetite, poor fluid intake, rectal bleeding, rectal pain, vomiting, others Genitourinary: denies: abnormal vagina bleeding, burning, dyspareunia, dysuria, flank pain, frequency, hematuria, incontinence, pain, , vagina discharge, urgency, others Neurological: denies: dizziness, fainting, headache, left sided numbness, left sided weakness, numbness, paresthesia, pre-existing deficit, right sided numbness, right sided weakness, seizure, speech problems, tingling, tremors, weakness, others Musculoskeletal: reports: back pain; denies: gout, joint pain, joint swelling, muscle pain, muscle stiffness, neck pain, others Integumetry: denies: bruises, change in color, change in hair/nails, dryness, laceration, lesions, lumps, rash, wounds, others Allergic/Immunocompromised: denies: Difficulty Healing, Frequent Infections, Hives, Itching, others Hematologic/Lymphatic: denies: anemia, blood clots, easy bleeding, easy brui sing, swollen glands, others Endocrine: denies: excessive hunger, excessive sweating, excessive thirst, ex cessive urination, flushing, intolerance to cold, intolerance to heat, unexplained weight gain, unexplained weight loss, others Psychiatric: denies: anxiety, bipolar disorder, depression, hopeless, panic disorder, schizophrenia, sleepless, suicidal, others All Other Systems: Reviewed and Negative Physical Exam General Appearance: Normal HEENT: Normal ENT Inspection, Pharynx Normal, TMs Normal Neck: Full Range of Motion, Non-Tender, Normal, Normal Inspection Respiratory: Chest Non-Tender, Lungs Clear, No Accessory Muscle Use, No Respiratory Distress, Normal Breath Sounds Cardiovascular: No Edema, No JVD, No Murmur, No Gallop, Normal Peripheral Pulses, Regular Rate/Rhythm Breast Exam: Deferred Gastrointestinal: No Organomegaly, Non Tender, No Pulsatile Mass, Normal Bowel Sounds, Soft Genitalia: Deferred Pelvic: Deferred Rectal: Deferred Extremities: No calf tenderness, Normal capillary refill, Normal inspection, Normal range of motion, Non-tender, No pedal edema Musculoskeletal : Apperance: Normal Neurologic: Alert, occupational therapist II-XII nml as Tested, No Motor Deficits, Normal Affect, Normal Mood, No Sensory Deficits Cerebellar Function: Normal Reflexes: Normal Skin: Dry, Normal Color, Warm Lymphatic: No Adenopathy EKG EKG : Pulse Rate (adult): 71 Cardiac Rhythm: NSR Was a procedure done? Was a procedure done?: No CP Differential Dx Differential Diagnosis: Angina, Anxiety / Panic Attack, MT, Ventricular Dysrhythmia Differential Diagnosis: Chest Wall Pain X-Ray, Labs, Meds, VS Vital Signs Date Time Temp Pulse Resp B/P (MAP) Pulse Ox O2 Delivery O2 Flow Rate FiO2 06/17/25 19:36 51 06/17/25 17:37 57 06/17/25 16:45 71 06/17/25 16:28 71 06/17/25 16:26 98.2 71 18 95/57 100 98.2 Lab Test 06/17/25 19:13 06/17/25 17:20 06/17/25 16:36 Range/Units Troponin I High Sensitivity < 3 L < 3 L < 3 L </=34 ng/L White Blood Count 4.9 4.4-10.8 10^3/uL Red Blood Count 4.31 4.0-5.20 10^6/uL Hemoglobin 13.9 12.2-16.2 g/dL Hematocrit 40.7 36.0-46.0 % Mean Corpuscular Volume 94.5 80.0-100.0 fL Mean Corpuscular Hemoglobin 32.2 H 28.0-32.0 pg Mean Corpuscular Hemoglobin Concent 34.1 32.0-36.0 g/dL Red Cell Distribution Width 13.1 11.8-14.3 % Platelet Count 229 140-450 10^3/uL Mean Platelet Volume 8.0 6.9-10.8 fL Neutrophils (%) (Auto) 67.1 37.0-80.0 % Lymphocytes (%) (Auto) 23.5 10.0-50.0 % Monocytes (%) (Auto) 8.3 0.0-12.0 % Eosinophils (%) (Auto) 0.6 0.0-7.0 % Basophils (%) (Auto) 0.5 0.0-2.0 % Neutrophils # (Auto) 3.3 1.6-8.6 10 ^3/uL Lymphocytes # (Auto) 1.2 0.4-5.4 10 ^3/uL Monocytes # (Auto) 0.4 0-1.3 10 ^3/uL Eosinophils # (Auto) 0 0-0.8 10 ^3/uL Basophils # (Auto) 0 0-0.2 10 ^3/uL Nucleated Red Blood Cells 0.0 % Sodium Level 145 136-145 mmol/L Potassium Level 3.7 3.5-5.1 mmol/L Chloride Level 106 98-107 mmol/L Carbon Dioxide Level 29 20-31 mmol/L Anion Gap 10 5-15 Blood Urea Nitrogen 11 9-23 mg/dL Creatinine 0.75 0.550-1.02 mg/dL Glomerular Filtration Rate Calc 115 >90 mL/min BUN/Creatinine Ratio 14.7 10.0-20.0 Serum Glucose 77 74-106 mg/dL Calcium Level 9.7 8.7-10.4 mg/dL X-Ray, Labs, Meds, VS Comment Patient signed out AMA Time of 1ST Reevaluation: 17:10 Reevaluation 1ST: Unchanged Patient Education/Counseling: Diagnosis, Treatment, Prognosis Family Education/Counseling: No Family Present SEPSIS Sepsis Screen Date sepsis recognized/suspect: Jun 17, 2025 Time Sepsis recognized/suspect: 1625 Recent Procedure: No On Antibiotic Therapy: No Respiratory Rate >20: No Heart Rate >90: No Temp<36 C (96.8 F) or >38.3 C: No SBP <90 or MAP <65 mmHG: No New Acute Mental Status Change: No Is the patient on CPAP, BIPAP,: No Physician Orders Chest Two Views Routine (06/17/25 16:27) Electrocardigram (06/17/25 17:27) Electrocardigram (06/17/25 19:27) Test, Urine (06/17/25 16:27) Vital Signs Date Time Temp Pulse Resp B/P (MAP) Pulse Ox O2 Delivery O2 Flow Rate FiO2 06/17/25 19:36 51 06/17/25 17:37 57 06/17/25 16:45 71 06/17/25 16:28 71 06/17/25 16:26 98.2 71 18 95/57 100 98.2 Laboratory Tests Test 06/17/25 16:36 White Blood Count 4.9 10^3/uL (4.4-10.8) Departure 1 Departure Time of Disposition: 23:24 Impression: Primary Impression: Chest pain Qualified Codes: R07.82 - Intercostal pain Disposition: 07 LEFT AGAINST MEDICAL ADVICE Condition: Stable Critical Care Note Critical Care Time?: No Stability Stability form required: No Heart Score Heart Score: Heart Score Response (Comments) Value History N/A 0 EKG N/A 0 Age N/A 0 Risk Factors N/A 0 Troponin N/A 0 Total 0 I personally scribed for RICHARD HUANG ([email or web address]) on 06/17/25 at 16:45. Electronically submitted by Svetlana Reveles ([email or web address]). RICHARD HUANG Jun 17, 2025 16:45
[2025-06-17 16:49] LABS: Hematocrit 40.7 % (36.0-46.0); Hemoglobin 13.9 g/dL (12.2-16.2); Mean Corpuscular Hemoglobin 32.2 pg (28.0-32.0); Mean Corpuscular Volume 94.5 fL (80.0-100.0); Nucleated Red Blood Cells % 0.0 %
[2025-06-17 16:58] LABS: Anion Gap 10 (5-15); Carbon Dioxide 29 mmol/L (20-31); Chloride 106 mmol/L (98-107); Potassium 3.7 mmol/L (3.5-5.1); Sodium 145 mmol/L (136-145)
[2025-06-17 16:59] LABS: Calcium 9.7 mg/dL (8.7-10.4)
[2025-06-17 17:04] LABS: BUN/Creatinine Ratio 14.7 (10.0-20.0); Blood Urea Nitrogen 11 mg/dL (9-23); Glucose 77 mg/dL (74-106)
[2025-06-17 19:36] VITALS: PULSE 51
--- NOTE | 2025-06-18 07:36 | ECG ---
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
--- NOTE | 2025-06-18 07:37 | ECG ---
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
== END 2025-06-17 23:50 | disposition left against medical advice (07) ==
LOC: ER 16:24
DX: R07.89 Other chest pain (principal); Z79.899 Other long term (current) drug therapy
CPT/HCPCS: 36415; 80048; 81025; 84484; 85025; 93005